=== PATIENT | male | born 1965 | race Caucasian/White ===

== ENCOUNTER 2016-11-20 11:12 | Emergency (ER) | payer BC, OTHER ==
[2016-11-20 11:18] VITALS: BP 128/75; PULSE 80; TEMP 97.9; BMI 31.1
[2016-11-20] MEDS ORDERED: DIPHTH,PERTUSS(ACELL),TET VAC 0.5 ML VIAL IM ONE (13:04)
--- NOTE | 2016-11-20 13:09 | PDOC ---
History of Present Illness - General Chief Complaint: Laceration Stated Complaint: HEAD LAC Time Seen by Provider: 11/20/16 13:03 History Source: Patient Exam Limitations: No Limitations - History of Present Illness Initial Comments: 11/20/16 13:04 51 yo healthy man presents to ED after he cut his head on some metal in his truck. No PMH, No PSH, No MEDS, No ALLERGIES, No associated symptoms, needs tetanus, refuses to allow me to repair the wound. Insists on Plastics Repair. Plastic Coverage Today is Dr. ROSA MATA MD. She can come here after her office closes at 5PM. She will be coming from [address] [place] [address]. She will be happy to see him now in her office. Patient given these two options and elects to go to her office now for the repair. Past History - Past Medical History Allergies/Adverse Reactions: Allergies Allergy/AdvReac Type Severity Reaction Status Date / Time No Known Allergies Allergy Verified 11/20/16 11:12 Home Medications: Ambulatory Orders NK [No Known Home Medication] 11/20/16 Thyroid Disease: No Other medical history: DENIES - Immunization History Immunization Up to Date: Yes - Psycho/Social/Smoking Cessation Hx Anxiety: No Suicidal Ideation: No Smoking Status: No Smoking History: Never smoked Have you smoked in the past 12 months: No Number of Cigarettes Smoked Daily: 0 Cigars Per Day: 0 Hx Alcohol Use: No Drug/Substance Use Hx: No Substance Use Type: None Hx Substance Use Treatment: No Review of Systems - Review of Systems Constitutional: No: Symptoms Reported HEENTM: No: Symptoms Reported Respiratory: No: Symptoms reported Cardiac (ROS): No: Symptoms Reported ABD/GI: No: Symptoms Reported : No: Symptoms Reported Musculoskeletal: No: Symptoms Reported Integumentary: No: Symptoms Reported Neurological: No: Symptoms reported Psychiatric: No: Anxiety, Depression Endocrine: No: Symptoms Reported Hematologic/Lymphatic: No: Symptoms Reported All Other Systems: Reviewed and Negative *Physical Exam - Vital Signs Last Vital Signs Temp Pulse Resp BP Pulse Ox 97.9 F 80 18 128/75 99 11/20/16 11:12 11/20/16 11:12 11/20/16 11:12 11/20/16 11:12 11/20/16 11:12 - Physical Exam Comments: 11/20/16 13:10 4.5 cm lac to right side of forehead minimal bleeding no FB. HEENT exam otherwise atraumatic Neck supple and non tender Chest CTA Heart No Murmur *DC/Admit/Observation/Transfer Diagnosis at time of Disposition: Laceration of forehead without complication Qualifiers: Encounter type: initial encounter Qualified Code(s): S01.81XA - Laceration without foreign body of other part of head, initial encounter - Discharge Dispostion Condition at time of disposition: Unchanged/Unknown Admit: No - Patient Instructions Additional Instructions: Mr Santizo- Go Directly to the plastic surgeon's office which is near [facility]. Her office is at: DR ROSA MATA [address] [facility] Office Number in case you get lost is [phone] Gabino- Dr. Bran Contreras
== END 2016-11-20 13:23 | disposition home or self-care (01) ==
LOC: FER 11:12
PROC: 3E0234Z Introduction of Serum, Toxoid and Vaccine into Muscle, Percutaneous Approach (ICD-10-PCS; principal; 2016-11-20)
DX: S01.81XA Laceration without foreign body of other part of head, initial encounter (principal); W22.8XXA Striking against or struck by other objects, initial encounter; Y93.9 Activity, unspecified; Y92.89 Other specified places as the place of occurrence of the external cause
CPT/HCPCS: 99282-25

== ENCOUNTER 2016-11-20 14:15 | Emergency (ER) | payer OTHER, BC ==
[2016-11-20] MEDS ORDERED: LIDO 2%/EPI 1:200000 PRESRVFRE (20 ML SDVIAL) ONE (14:46)
[2016-11-20 15:10] VITALS: BP 126/78; PULSE 79; TEMP 98.3; BMI 30.4
--- NOTE | 2016-11-20 15:11 | PDOC ---
History of Present Illness - General Chief Complaint: Laceration Stated Complaint: forehead/ head lac Past History - Past Medical History Allergies/Adverse Reactions: Allergies Allergy/AdvReac Type Severity Reaction Status Date / Time No Known Allergies Allergy Verified 11/20/16 11:12 Home Medications: Ambulatory Orders NK [No Known Home Medication] 11/20/16 Thyroid Disease: No - Immunization History Immunization Up to Date: Yes - Psycho/Social/Smoking Cessation Hx Anxiety: No Suicidal Ideation: No Smoking Status: No Smoking History: Never smoked Have you smoked in the past 12 months: No Number of Cigarettes Smoked Daily: 0 Cigars Per Day: 0 Hx Alcohol Use: No Drug/Substance Use Hx: No Substance Use Type: None Hx Substance Use Treatment: No *DC/Admit/Observation/Transfer Diagnosis at time of Disposition: Laceration of forehead without complication Qualifiers: Encounter type: initial encounter Qualified Code(s): S01.81XA - Laceration without foreign body of other part of head, initial encounter - Discharge Dispostion Disposition: HOME Condition at time of disposition: Improved - Referrals Referrals: Corona Mejía MD [Staff Physician] - - Patient Instructions Printed Discharge Instructions: DI for Laceration Repair Additional Instructions: Follow Dr. Mejía's Instructions
--- NOTE | 2016-11-24 14:33 | OP ---
DATE OF OPERATION: 11/20/2016 PROCEDURE PERFORMED: A 3-cm forehead laceration complex washout and repair with a separate complex scalp laceration washout and repair measuring 2.5 cm. ATTENDING PHYSICIAN: Corona Ayala MD REFERRING PHYSICIAN: MD Darvin HISTORY: This is a 51-year-old male who suffered a laceration in each of the frontal scalp and the forehead involving skin, frontalis, galea and muscle. He was brought to [facility] for treatment. PAST MEDICAL HISTORY: Noncontributory. PAST SURGICAL HISTORY: Noncontributory. REVIEW OF SYSTEMS: Negative for any bleeding, coagulopathy, recent fevers or infections, change in mental status, chest pain, or shortness of breath. PHYSICAL EXAMINATION: Head and Neck: Atraumatic except for the above described laceration. Pupils are equal, round and reactive to light. Extraocular muscles are intact. Neck: Supple, nontender. Heart: Regular rate and rhythm. Lungs: Clear to auscultation. The patient is counseled on risks, benefits and alteratives to washout and repair of laceration. He understood and agreed to proceed. PROCEDURE IN DETAIL: The wound was prepped and draped in standard sterile fashion. Margins were injected with a total of 5 mL of 2% lidocaine with 1:100,000 epinephrine. The wound was copiously irrigated with normal saline. The frontalis muscles were approximated with 5-0 Vicryl suture. The galea was approximated with 5-0 Vicryl. The skin was then carefully debrided and prepared on the skin with a running 5-0 Prolene suture. The scalp was then repaired with a series of interrupted skin nataly. The wound is dressed with bacitracin. Written instructions were given. The patient is to follow up with Dr. Ayala in 6 days. CORONA AYALA M.D. [id number]
== END 2016-11-20 15:15 | disposition home or self-care (01) ==
LOC: FER 14:15
PROC: 0HQ1XZZ Repair Face Skin, External Approach (ICD-10-PCS; principal; 2016-11-20)
DX: S01.81XA Laceration without foreign body of other part of head, initial encounter (principal); W22.8XXA Striking against or struck by other objects, initial encounter; Y93.9 Activity, unspecified; Y92.9 Unspecified place or not applicable
CPT/HCPCS: 99282-25

== ENCOUNTER 2017-06-25 12:58 | Inpatient (IN) | payer BC, OTHER ==
[2017-06-25] MEDS ORDERED: SODIUM CHLORIDE 1,000 ML IV STA (13:26)
--- NOTE | 2017-06-25 13:38 | PDOC ---
Attending Attestation - Resident Resident Name: Tova Eisenberg - ED Attending Attestation I have performed the following: I have examined & evaluated the patient, The case was reviewed & discussed with the resident, I agree w/resident's findings & plan, Exceptions are as noted - HPI HPI: 06/25/17 13:27 52y M hx of DM, presents with AMS. Per family and coworkers, the patient was confused today at work,his coworker brought him home and at home they called EMS. PEr the family the patient was unable to answer any questions, was confused in the parking lot in that he couldnt find his car. ON arrival the patient was agitated, was noted to be tachy t o120s, extremities were cold, but his core temp was warm - his rectal was 102. history from the patient is limited due to his mental status. per family the pt had a hsistory of etoh and drug abuse but no longer. on exam the pt is agitated, on arrival he was tearful but it stopped after a few minutes. 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 and no exposure to pesticides or organophosphates no one else sick at work will ck labs, tox screen, cva, ua, will get fluids pt extremely agiated and trying to get up and requred sedation with ativan 1mg 06/25/17 15:39 labs reviewed mild leukoctypsis essentially nondiagnostic will bring to CT when available awaiting ABG results if workup negative, consider LP as pt is fever/AMS --> ?meningitis/encephalitis 06/25/17 15:58 06/25/17 16:59 ct head eng for acute pathology 06/25/17 18:34 unable to obtain CSF, LP x 2 - pt agitated, moving making it dangerous, even with sedation will treat with abx with CTX, Vancomycin, Acyclovir for meningitis will order MRI for possible CVA will admit for further managment will discuss with Dr. Cooley 06/25/17 19:47 pt with some abd tenderness on repeat exam - will obtain CT abd with IV contrast pt admitted to hospitalist service for further management will consult neurology CRITICAL CARE DOCUMENTATION: I spent ~105 minutes of Critical Care time, excluding separately billable procedures, involving high complexity decision making to assess, manipulate and support vital system function(s) to treat single or multiple vital organ system failure and/or to prevent further life threatening deterioration of the patient' s condition. Heart Score/ECG Review - ECG Impressions Comment:: 06/25/17 19:53 EKG: NSR Rate of 94 normal axis normal intervals no ST changes suggestive of acute ischemia
[2017-06-25] MEDS ORDERED: ACETAMINOPHEN INJECTION 100 ML IVPB ONE ×2 (13:45→19:35)
[2017-06-25] MEDS ORDERED: ACETAMINOPHEN 1000 MG/100 ML VIAL (NON FORMULARY) IVPB ONE ×2 (14:01→20:14)
[2017-06-25 14:17] LABS: URINE APPEARANCE CLEAR; URINE BILIRUBIN NEGATIVE (NEGATIVE); URINE BLOOD 1+ (NEGATIVE); URINE COLOR YELLOW; URINE GLUCOSE (UA) NEGATIVE (NEGATIVE); URINE KETONE NEGATIVE (NEGATIVE); URINE LEUK ESTERASE NEGATIVE (NEGATIVE); URINE NITRITE NEGATIVE (NEGATIVE); URINE PROTEIN NEGATIVE (NEGATIVE); URINE UROBILINOGEN NEGATIVE mg/dL (0.2-1.0)
[2017-06-25 14:21] LABS: URINE MUCUS RARE
[2017-06-25 14:30] LABS: INR 1.01 (0.82-1.09); PROTHROMBIN TIME (PATIENT) 11.4 SEC (9.98-11.88)
[2017-06-25 14:33] LABS: ACTIVATED PTT 23.4 SECONDS (26.9-34.4)
[2017-06-25 14:43] LABS: ACETAMINOPHEN < 10 ug/ml (10.0-30.0); COCAINE, UR NEGATIVE ng/ml (CUTOFF=300); METHADONE, UR NEGATIVE ng/ml (CUTOFF=300); OPIATES, URI NEGATIVE ng/ml (CUTOFF=300); PHENCYCLIDINE,URINE NEGATIVE ng/ml (CUTOFF=25); SALICYLATE < 4.0 mg/dl (0.0-30.0); URINE AMPHETAMINES NEGATIVE ng/ml (CUTOFF=500); URINE BARBITURATES NEGATIVE ng/ml (CUTOFF=200); URINE BENZODIAZEPINES NEGATIVE ng/ml (CUTOFF=200)
[2017-06-25 14:45] LABS: ALBUMIN 4.7 g/dl (3.4-5.0); ANION GAP 11 (8-16); BLOOD UREA NITROGEN 13 mg/dL (7-18); CALCIUM 10.1 mg/dL (8.5-10.1); CHLORIDE 99 mmol/L (98-107); CO2 25 mmol/L (21-32); CREATININE 0.9 mg/dL (0.7-1.3); GLUCOSE,RANDOM 120 mg/dL (74-106); POTASSIUM 4.4 mmol/L (3.5-5.1); SGOT/AST 13 U/L (15-37); SGPT/ALT 34 U/L (12-78); SODIUM 135 mmol/L (136-145)
[2017-06-25 14:55] LABS: ALK PHOS 114 U/L (45-117); BILIRUBIN,TOTAL 1.6 mg/dL (0.2-1.0); TOT PROT 8.8 g/dl (6.4-8.2)
[2017-06-25 15:21] LABS: BASO % 1.1 % (0-2.0); EOS % 1.2 % (0-4.5); HEMATOCRIT 46.3 % (35.4-49); HEMOGLOBIN 15.8 GM/dL (11.7-16.9); LYMPH % 25.2 % (8-40); MCH 28.2 pg (25.7-33.7); MCHC 34.2 g/dl (32.0-35.9); MEAN CELL VOLUME 82.4 fl (80-96); MEAN PLT VOLUME 8.3 fl (7.5-11.1); MONO % 7.5 % (3.8-10.2); PLATELET COUNT 185 K/MM3 (134-434); RBC 5.61 M/mm3 (4.00-5.60); WHITE BLOOD COUNT 11.4 K/mm3 (4.0-10.0)
[2017-06-25 15:34] LABS: ALCOHOL < 5.0 mg/dl (0-5)
[2017-06-25 15:44] LABS: ARTERIAL BLD GAS O2 SATURATION 94.2 % (90-98.9); ARTERIAL BLOOD GAS PCO2 31.7 mmHg (35-45); ARTERIAL BLOOD GAS PO2 69.2 mmHg (80-100); ARTERIAL BLOOD GAS pH 7.44 (7.35-7.45)
--- NOTE | 2017-06-25 15:45 | PDOC ---
History of Present Illness <Kvng Swan - Last Filed: 06/25/17 18:32> - General History Source: Patient, Family - History of Present Illness Initial Comments: This is a 52 YOM with h/o DM and distant EtOH/drug abuse, who presents with family BIBA c/o agitation, confusion, sweats, tearing eyes, runny nose, inability to get comfortable, and anxiety since this morning. The family notes that the patient was at work when he first became confused and this worsened throughout the day per coworkers. He was unable to find his car in the parking lot and a coworker brought him home. Shortly after arrival home, 911 was called to bring him to the ED. Here in the ED, the patient himself is unable to provide any relevant medical history 2/2 agitation. <Tova Eisenberg - Last Filed: 06/25/17 19:12> - General Chief Complaint: Altered Mental Status Stated Complaint: SENT BY PCP Time Seen by Provider: 06/25/17 13:24 Past History <Kvng Swan - Last Filed: 06/25/17 18:32> - Past Medical History COPD: No Diabetes: Yes (type II) Thyroid Disease: No - Immunization History Immunization Up to Date: Yes - Suicide/Smoking/Psychosocial Hx Smoking Status: No Smoking History: Never smoked Have you smoked in the past 12 months: No Number of Cigarettes Smoked Daily: 0 Cigars Per Day: 0 Information on smoking cessation initiated: No Hx Alcohol Use: No Drug/Substance Use Hx: No Substance Use Type: None Hx Substance Use Treatment: No <Tova Eisenberg - Last Filed: 06/25/17 19:12> - Past Medical History Allergies/Adverse Reactions: Allergies Allergy/AdvReac Type Severity Reaction Status Date / Time No Known Allergies Allergy Verified 06/25/17 13:25 Home Medications: Ambulatory Orders NK [No Known Home Medication] 06/25/17 *Physical Exam - Vital Signs Last Vital Signs Temp Pulse Resp BP Pulse Ox 100.5 F H 96 H 20 141/98 98 06/25/17 18:00 06/25/17 18:00 06/25/17 18:00 06/25/17 18:00 06/25/17 18:00 <Kvng Swan - Last Filed: 06/25/17 18:32> - Vital Signs Last Vital Signs Temp Pulse Resp BP Pulse Ox 101.7 F H 94 H 20 123/86 96 06/25/17 13:21 06/25/17 14:45 06/25/17 14:45 06/25/17 14:45 06/25/17 14:45 <Tova Eisenberg - Last Filed: 06/25/17 19:12> Procedures - Lumbar Puncture Indication: Meningitis CT Scan: Yes Betadine Prep: Yes Position: Left lateral decubitus Site: L3-L4 Local Anesthesia: 1% Lidocaine with epi Volume(ml): 5 Lumbar Puncture Kit: Adult Complications: Dry Tap <Kvng Swan - Last Filed: 06/25/17 18:32> - Lumbar Puncture Indication: AMS, Fever CT Scan: Yes Betadine Prep: Yes Position: Right lateral decubitus Site: L3-L4 Local Anesthesia: 1% Lidocaine with epi Lumbar Puncture Kit: Adult Complications: No Progress: Unable to get CSF return <Tova Eisenberg - Last Filed: 06/25/17 19:12> ED Treatment Course - LABORATORY CBC & Chemistry Diagram: 06/25/17 14:55 06/25/17 14:02 - ADDITIONAL ORDERS Additional order review: Laboratory Results 06/25/17 06/25/17 06/25/17 15:30 14:55 14:10 PT with INR INR PTT (Actin FS) Anticoagulation Therapy No Result Required. ABG pH 7.44 ABG pCO2 at Pt Temp 31.7 L ABG pO2 at Pt Temp 69.2 L ABG HCO3 21.3 L ABG O2 Sat (Measured) 94.2 ABG O2 Content 26.0 H ABG Base Excess -1.0 Navid Test Positive O2 Delivery Device No Result Required. Oxygen Flow Rate Yes Vent Mode No Result Required. Vent Rate No Result Required. Mechanical Rate No Result Required. Pressure Support Vent No Result Required. Sodium Potassium Chloride Carbon Dioxide Anion Gap BUN Creatinine Creat Clearance w eGFR Random Glucose Lactic Acid Calcium Total Bilirubin AST ALT Alkaline Phosphatase Ammonia < 10 L Creatine Kinase Troponin I Total Protein Albumin Urine Color Urine Appearance Urine pH Ur Specific Alvord Urine Protein Urine Glucose (UA) Urine Ketones Urine Blood Urine Nitrite Urine Bilirubin Urine Urobilinogen Urine WBC (Auto) Urine RBC (Auto) Urine Mucus Salicylates Opiates Screen Methadone Screen Acetaminophen Barbiturate Screen Phencyclidine Screen Ur Amphetamines Screen MDMA (Ecstasy) Screen Benzodiazepines Screen Cocaine Screen U Marijuana (THC) Screen Alcohol, Quantitative Blood Type O POSITIVE Antibody Screen Negative 06/25/17 06/25/17 06/25/17 14:02 14:02 14:02 PT with INR 11.40 INR 1.01 PTT (Actin FS) 23.4 L D Anticoagulation Therapy ABG pH ABG pCO2 at Pt Temp ABG pO2 at Pt Temp ABG HCO3 ABG O2 Sat (Measured) ABG O2 Content ABG Base Excess Navid Test O2 Delivery Device Oxygen Flow Rate Vent Mode Vent Rate Mechanical Rate Pressure Support Vent Sodium Potassium Chloride Carbon Dioxide Anion Gap BUN Creatinine Creat Clearance w eGFR Random Glucose Lactic Acid 1.8 Calcium Total Bilirubin AST ALT Alkaline Phosphatase Ammonia Creatine Kinase Troponin I Total Protein Albumin Urine Color Urine Appearance Urine pH Ur Specific Alvord Urine Protein Urine Glucose (UA) Urine Ketones Urine Blood Urine Nitrite Urine Bilirubin Urine Urobilinogen Urine WBC (Auto) Urine RBC (Auto) Urine Mucus Salicylates Opiates Screen Negative Methadone Screen Negative Acetaminophen Barbiturate Screen Negative Phencyclidine Screen Negative Ur Amphetamines Screen Negative MDMA (Ecstasy) Screen Negative Benzodiazepines Screen Negative Cocaine Screen Negative U Marijuana (THC) Screen Negative Alcohol, Quantitative Blood Type Antibody Screen 06/25/17 06/25/17 06/25/17 14:02 14:02 14:02 PT with INR INR PTT (Actin FS) Anticoagulation Therapy ABG pH ABG pCO2 at Pt Temp ABG pO2 at Pt Temp ABG HCO3 ABG O2 Sat (Measured) ABG O2 Content ABG Base Excess Navid Test O2 Delivery Device Oxygen Flow Rate Vent Mode Vent Rate Mechanical Rate Pressure Support Vent Sodium 135 L Potassium 4.4 Chloride 99 Carbon Dioxide 25 Anion Gap 11 BUN 13 Creatinine 0.9 Creat Clearance w eGFR > 60 Random Glucose 120 H D Lactic Acid Calcium 10.1 Total Bilirubin 1.6 H D AST 13 L ALT 34 D Alkaline Phosphatase 114 Ammonia Creatine Kinase 74 Troponin I < 0.02 Total Protein 8.8 H D Albumin 4.7 D Urine Color Yellow Urine Appearance Clear Urine pH 5.0 Ur Specific Alvord 1.023 Urine Protein Negative Urine Glucose (UA) Negative Urine Ketones Negative Urine Blood 1+ H Urine Nitrite Negative Urine Bilirubin Negative Urine Urobilinogen Negative Urine WBC (Auto) <1 Urine RBC (Auto) 1 Urine Mucus Rare Salicylates < 4.0 Opiates Screen Methadone Screen Acetaminophen < 10 L Barbiturate Screen Phencyclidine Screen Ur Amphetamines Screen MDMA (Ecstasy) Screen Benzodiazepines Screen Cocaine Screen U Marijuana (THC) Screen Alcohol, Quantitative < 5.0 Blood Type Antibody Screen 06/25/17 06/25/17 14:55 14:02 RBC 5.61 H MCV 82.4 MCHC 34.2 RDW 13.0 MPV 8.3 Neutrophils % 65.0 D Lymphocytes % 25.2 D Monocytes % 7.5 Eosinophils % 1.2 Basophils % 1.1 - RADIOLOGY Radiology Studies Ordered: Category Date Time Status HEAD CT WITHOUT CONTRAST [CT] Stat CT Scan 06/25/17 16:10 Completed BRAIN MRI W/O CONTRAST [MRI] Stat MRI 06/25/17 18:31 Ordered CHEST X-RAY PORTABLE* [RAD] Stat Radiology 06/25/17 13:26 Completed - Medications Given in the ED: ED Medications Discontinued Medications Generic Name Dose Route Start Last Admin Trade Name Freq PRN Reason Stop Dose Admin Acetaminophen 1,000 mg 06/25/17 14:01 06/25/17 14:03 Ofirmev Injection - IVPB 06/25/17 14:02 1,000 mg ONCE ONE Administration Sodium Chloride 1,000 mls @ 1,000 mls/hr 06/25/17 13:26 06/25/17 13:50 Normal Saline - IV 06/25/17 14:25 1,000 mls/hr ASDIR STA Administration Lorazepam 1 mg 06/25/17 13:56 06/25/17 14:00 Ativan Injection - IVPUSH 06/25/17 13:57 1 mg ONCE ONE Administration Lorazepam 0.5 mg 06/25/17 17:00 06/25/17 17:32 Ativan Injection - IVPUSH 06/25/17 17:01 0.5 mg ONCE ONE Administration <Sosa,Kvng - Last Filed: 06/25/17 18:32> - LABORATORY CBC & Chemistry Diagram: 06/25/17 14:55 06/25/17 14:02 - ADDITIONAL ORDERS Additional order review: Laboratory Results 06/25/17 06/25/17 06/25/17 15:30 14:02 14:02 PT with INR INR PTT (Actin FS) Anticoagulation Therapy No Result Required. O2 Delivery Device No Result Required. Oxygen Flow Rate No Result Required. Vent Mode No Result Required. Vent Rate No Result Required. Mechanical Rate No Result Required. Pressure Support Vent No Result Required. Sodium Potassium Chloride Carbon Dioxide Anion Gap BUN Creatinine Creat Clearance w eGFR Random Glucose Lactic Acid 1.8 Calcium Total Bilirubin AST ALT Alkaline Phosphatase Creatine Kinase Troponin I Total Protein Albumin Urine Color Urine Appearance Urine pH Ur Specific Alvord Urine Protein Urine Glucose (UA) Urine Ketones Urine Blood Urine Nitrite Urine Bilirubin Urine Urobilinogen Urine WBC (Auto) Urine RBC (Auto) Urine Mucus Salicylates Opiates Screen Negative Methadone Screen Negative Acetaminophen Barbiturate Screen Negative Phencyclidine Screen Negative Ur Amphetamines Screen Negative MDMA (Ecstasy) Screen Negative Benzodiazepines Screen Negative Cocaine Screen Negative U Marijuana (THC) Screen Negative Alcohol, Quantitative 06/25/17 06/25/17 06/25/17 14:02 14:02 14:02 PT with INR 11.40 INR 1.01 PTT (Actin FS) 23.4 L D Anticoagulation Therapy O2 Delivery Device Oxygen Flow Rate Vent Mode Vent Rate Mechanical Rate Pressure Support Vent Sodium 135 L Potassium 4.4 Chloride 99 Carbon Dioxide 25 Anion Gap 11 BUN 13 Creatinine 0.9 Creat Clearance w eGFR > 60 Random Glucose 120 H D Lactic Acid Calcium 10.1 Total Bilirubin 1.6 H D AST 13 L ALT 34 D Alkaline Phosphatase 114 Creatine Kinase 74 Troponin I < 0.02 Total Protein 8.8 H D Albumin 4.7 D Urine Color Urine Appearance Urine pH Ur Specific Alvord Urine Protein Urine Glucose (UA) Urine Ketones Urine Blood Urine Nitrite Urine Bilirubin Urine Urobilinogen Urine WBC (Auto) Urine RBC (Auto) Urine Mucus Salicylates < 4.0 Opiates Screen Methadone Screen Acetaminophen < 10 L Barbiturate Screen Phencyclidine Screen Ur Amphetamines Screen MDMA (Ecstasy) Screen Benzodiazepines Screen Cocaine Screen U Marijuana (THC) Screen Alcohol, Quantitative < 5.0 06/25/17 14:02 PT with INR INR PTT (Actin FS) Anticoagulation Therapy O2 Delivery Device Oxygen Flow Rate Vent Mode Vent Rate Mechanical Rate Pressure Support Vent Sodium Potassium Chloride Carbon Dioxide Anion Gap BUN Creatinine Creat Clearance w eGFR Random Glucose Lactic Acid Calcium Total Bilirubin AST ALT Alkaline Phosphatase Creatine Kinase Troponin I Total Protein Albumin Urine Color Yellow Urine Appearance Clear Urine pH 5.0 Ur Specific Alvord 1.023 Urine Protein Negative Urine Glucose (UA) Negative Urine Ketones Negative Urine Blood 1+ H Urine Nitrite Negative Urine Bilirubin Negative Urine Urobilinogen Negative Urine WBC (Auto) <1 Urine RBC (Auto) 1 Urine Mucus Rare Salicylates Opiates Screen Methadone Screen Acetaminophen Barbiturate Screen Phencyclidine Screen Ur Amphetamines Screen MDMA (Ecstasy) Screen Benzodiazepines Screen Cocaine Screen U Marijuana (THC) Screen Alcohol, Quantitative 06/25/17 06/25/17 14:55 14:02 RBC 5.61 H MCV 82.4 MCHC 34.2 RDW 13.0 MPV 8.3 Neutrophils % 65.0 D Lymphocytes % 25.2 D Monocytes % 7.5 Eosinophils % 1.2 Basophils % 1.1 - Medications Given in the ED: ED Medications Discontinued Medications Generic Name Dose Route Start Last Admin Trade Name Ezra PRN Reason Stop Dose Admin Acetaminophen 1,000 mg 06/25/17 14:01 06/25/17 14:03 Ofirmev Injection - IVPB 06/25/17 14:02 1,000 mg ONCE ONE Administration Sodium Chloride 1,000 mls @ 1,000 mls/hr 06/25/17 13:26 06/25/17 13:50 Normal Saline - IV 06/25/17 14:25 1,000 mls/hr ASDIR STA Administration Lorazepam 1 mg 06/25/17 13:56 06/25/17 14:00 Ativan Injection - IVPUSH 06/25/17 13:57 1 mg ONCE ONE Administration <Tova Eisenberg - Last Filed: 06/25/17 19:12> Medical Decision Making - Medical Decision Making 52 YOM with h/o DM and distant EtOH/drug abuse, BIBA w/ acute agitation, confusion, sweats, tearing eyes, runny nose, fever. On exam he is tachycardic, tachypneic, DDX IBNLT toxic ingestion/exposure, ICH or other intracranial pathology, infection i.e. meningitis or encephalitis, encephalopathy, metabolic, etc. Ordered is CBCD, CMP, Mg, Phos, ammonia, cardiac panel, lactate, BCx, UA cx tox , APAP level, Tylenol level, CXR, EKG, ABG, HCT. Patient given 2 L IVF as well as Ofirmev and 1 mg Ativan. 06/25/17 18:46 Patient remained confused, agitated, febrile. CBCD results with mild elevation in WBC. Tox negative, UA negative, remaining labs unremarkable. Head CT without obvious ICH or other intracranial processes. Attempted to to LP after patient is re-dosed with Ativan but the patient is too agitated, moving frequently. Empiric vancomycin, ceftriaxone, acyclovir ordered. MRI brain wo contrast also ordered. Plan is for admission to inpatient telemetry. <Tova Eisenberg - Last Filed: 06/25/17 19:12> *DC/Admit/Observation/Transfer <Kvng Swan - Last Filed: 06/25/17 18:32> - Discharge Dispostion Admit: Yes <Tova Eisenberg - Last Filed: 06/25/17 19:12> Diagnosis at time of Disposition: Altered mental state Qualifiers: Altered mental status type: unspecified Qualified Code(s): R41.82 - Altered mental status, unspecified Sepsis Qualifiers: Sepsis type: sepsis due to unspecified organism Qualified Code(s): A41.9 - Sepsis, unspecified organism - Discharge Dispostion Condition at time of disposition: Guarded - Referrals Referrals: Jaspreet Cooley MD [Primary Care Provider] - - Patient Instructions - Post Discharge Activity
[2017-06-25 16:12] LABS: ALLENS TEST POSITIVE
[2017-06-25] MEDS ORDERED: LORazepam 2 MG/ML SDV VIAL ONE ×2 (17:04→21:23)
[2017-06-25] MEDS ORDERED: CEFTRIAXONE 2 GM in DEXTROSE 5%-WATER - 50 ML IVPB ONE (18:28)
[2017-06-25] MEDS ORDERED: WATER IVPB ONE (18:29)
[2017-06-25] MEDS ORDERED: ACYCLOVIR IVPB ONE (18:29)
[2017-06-25] MEDS ORDERED: DEXTROSE 5% IVPB ONE (18:29)
[2017-06-25] MEDS ORDERED: VANCOMYCIN 1,500 MG in DEXTROSE 5%-WATER - 250 ML IVPB ONE (18:31)
[2017-06-25] MEDS ORDERED: CEFTRIAXONE 2 GM/100 ML BAG IVPB ONE (18:47)
[2017-06-25] MEDS ORDERED: HALOPERIDOL LACTATE 5 MG/ML IM ONE (19:01)
[2017-06-25] MEDS ORDERED: HALOPERIDOL LACTATE 5 MG/ML ONE (19:02)
--- NOTE | 2017-06-25 20:07 | HP ---
PCP: Jaspreet Cooley CHIEF COMPLAINT: Confusion HISTORY OF PRESENT ILLNESS: This is a 52 year old man who was brought in to the ED because of agitation and confusion. Family notes that he was ok last night. He went to work this morning and while there became confused. According to his coworkers, he worsened throughout the day and he had to be driven home. Once home, family called EMS. They noted that he has been tremulous and sweaty. He is currently awake, moving around on the stretcher, and moaning. He is unable to provide any history. LP was attempted twice in ED without CSF being obtained both times. PAST MEDICAL HISTORY: Type 2 diabetes mellitus PAST SURGICAL HISTORY: Arm surgery for fracture Social History: Smoking: Never smoked Alcohol: Former Drugs: Former marijuana user Recent Travel: No Family History: Non-contributory Allergies No Known Allergies Allergy (Verified 06/25/17 13:25) Home Medications Medication Instructions Recorded NK [No Known Home Medication] 06/25/17 REVIEW OF SYSTEMS Unable to obtain PHYSICAL EXAMINATION Vital Signs - 24 hr 06/25/17 06/25/17 06/25/17 13:21 14:00 14:30 Temperature 101.7 F H Pulse Rate 122 H 94 H Pulse Rate [ 102 H 96 H Apical] Respiratory 23 24 20 Rate Blood Pressure 130/95 Blood Pressure 115/80 133/98 [Left Arm] O2 Sat by Pulse 100 96 95 Oximetry (%) 06/25/17 06/25/17 06/25/17 14:45 15:47 16:00 Temperature 98.8 F Pulse Rate Pulse Rate [ 94 H 94 H Apical] Respiratory 20 20 Rate Blood Pressure Blood Pressure 123/86 124/83 [Left Arm] O2 Sat by Pulse 96 97 Oximetry (%) 06/25/17 06/25/17 06/25/17 16:30 17:00 17:30 Temperature Pulse Rate Pulse Rate [ 91 H 90 98 H Apical] Respiratory 18 18 18 Rate Blood Pressure Blood Pressure 141/89 136/99 150/94 [Left Arm] O2 Sat by Pulse 98 98 98 Oximetry (%) 06/25/17 06/25/17 06/25/17 18:00 19:25 19:50 Temperature 100.5 F H 103 F H 102.7 F H Pulse Rate Pulse Rate [ 96 H 101 H 102 H Apical] Respiratory 20 22 20 Rate Blood Pressure Blood Pressure 141/98 158/88 163/91 [Left Arm] O2 Sat by Pulse 98 97 98 Oximetry (%) GENERAL: Awake, confused. HEAD: Normal with no signs of trauma. EYES: Unable to examine eyes as patient is keeping lids closed tight. EARS, NOSE, THROAT: Ears normal, nares patent, oropharynx unable to be visualized. NECK: Supple, decreased ROM, without lymphadenopathy, JVD, or masses. LUNGS: Breath sounds equal, clear to auscultation bilaterally. No wheezes, and no crackles. No accessory muscle use. HEART: Regular rate and rhythm, normal S1 and S2 without murmur, rub or gallop. ABDOMEN: Soft, not distended, normoactive bowel sounds, no masses, no apparent tenderness. No hepatomegaly or splenomegaly. MUSCULOSKELETAL: Normal passive range of motion at all joints. No bony deformities. UPPER EXTREMITIES: 2+ pulses, warm, well-perfused. No cyanosis. No clubbing. No peripheral edema. LOWER EXTREMITIES: 2+ pulses, warm, well-perfused. No calf tenderness. No peripheral edema. NEUROLOGICAL: Unable to cooperate with examination. Moaning and moving all extremities. PSYCHIATRIC: Unable to assess. SKIN: Warm, dry, normal turgor, no rashes or lesions noted, normal capillary refill. Laboratory Results - last 24 hr 06/25/17 06/25/17 06/25/17 14:02 14:02 14:02 WBC RBC Hgb Hct MCV MCH MCHC RDW Plt Count No Result Required. MPV Neutrophils % Lymphocytes % Monocytes % Eosinophils % Basophils % PT with INR INR PTT (Actin FS) Anticoagulation Therapy ABG pH ABG pCO2 at Pt Temp ABG pO2 at Pt Temp ABG HCO3 ABG O2 Sat (Measured) ABG O2 Content ABG Base Excess Navid Test O2 Delivery Device Oxygen Flow Rate Vent Mode Vent Rate Mechanical Rate Pressure Support Vent Sodium 135 L Potassium 4.4 Chloride 99 Carbon Dioxide 25 Anion Gap 11 BUN 13 Creatinine 0.9 Creat Clearance w eGFR > 60 Random Glucose 120 H D Lactic Acid Calcium 10.1 Total Bilirubin 1.6 H D AST 13 L ALT 34 D Alkaline Phosphatase 114 Ammonia Creatine Kinase 74 Troponin I < 0.02 Total Protein 8.8 H D Albumin 4.7 D Urine Color Yellow Urine Appearance Clear Urine pH 5.0 Ur Specific [place] 1.023 Urine Protein Negative Urine Glucose (UA) Negative Urine Ketones Negative Urine Blood 1+ H Urine Nitrite Negative Urine Bilirubin Negative Urine Urobilinogen Negative Ur Leukocyte Esterase Negative Urine WBC (Auto) <1 Urine RBC (Auto) 1 Urine Mucus Rare Salicylates Opiates Screen Methadone Screen Acetaminophen Barbiturate Screen Phencyclidine Screen Ur Amphetamines Screen MDMA (Ecstasy) Screen Benzodiazepines Screen Cocaine Screen U Marijuana (THC) Screen Alcohol, Quantitative Acetone, Qual Blood Type Antibody Screen 06/25/17 06/25/17 06/25/17 14:02 14:02 14:02 WBC RBC Hgb Hct MCV MCH MCHC RDW Plt Count MPV Neutrophils % Lymphocytes % Monocytes % Eosinophils % Basophils % PT with INR 11.40 INR 1.01 PTT (Actin FS) 23.4 L D Anticoagulation Therapy ABG pH ABG pCO2 at Pt Temp ABG pO2 at Pt Temp ABG HCO3 ABG O2 Sat (Measured) ABG O2 Content ABG Base Excess Navid Test O2 Delivery Device Oxygen Flow Rate Vent Mode Vent Rate Mechanical Rate Pressure Support Vent Sodium Potassium Chloride Carbon Dioxide Anion Gap BUN Creatinine Creat Clearance w eGFR Random Glucose Lactic Acid 1.8 Calcium Total Bilirubin AST ALT Alkaline Phosphatase Ammonia Creatine Kinase Troponin I Total Protein Albumin Urine Color Urine Appearance Urine pH Ur Specific [place] Urine Protein Urine Glucose (UA) Urine Ketones Urine Blood Urine Nitrite Urine Bilirubin Urine Urobilinogen Ur Leukocyte Esterase Urine WBC (Auto) Urine RBC (Auto) Urine Mucus Salicylates < 4.0 Opiates Screen Methadone Screen Acetaminophen < 10 L Barbiturate Screen Phencyclidine Screen Ur Amphetamines Screen MDMA (Ecstasy) Screen Benzodiazepines Screen Cocaine Screen U Marijuana (THC) Screen Alcohol, Quantitative < 5.0 Acetone, Qual Blood Type Antibody Screen 06/25/17 06/25/17 06/25/17 14:02 14:10 14:55 WBC RBC Hgb Hct MCV MCH MCHC RDW Plt Count MPV Neutrophils % Lymphocytes % Monocytes % Eosinophils % Basophils % PT with INR INR PTT (Actin FS) Anticoagulation Therapy ABG pH ABG pCO2 at Pt Temp ABG pO2 at Pt Temp ABG HCO3 ABG O2 Sat (Measured) ABG O2 Content ABG Base Excess Navid Test O2 Delivery Device Oxygen Flow Rate Vent Mode Vent Rate Mechanical Rate Pressure Support Vent Sodium Potassium Chloride Carbon Dioxide Anion Gap BUN Creatinine Creat Clearance w eGFR Random Glucose Lactic Acid Calcium Total Bilirubin AST ALT Alkaline Phosphatase Ammonia < 10 L Creatine Kinase Troponin I Total Protein Albumin Urine Color Urine Appearance Urine pH Ur Specific Paloma Urine Protein Urine Glucose (UA) Urine Ketones Urine Blood Urine Nitrite Urine Bilirubin Urine Urobilinogen Ur Leukocyte Esterase Urine WBC (Auto) Urine RBC (Auto) Urine Mucus Salicylates Opiates Screen Negative Methadone Screen Negative Acetaminophen Barbiturate Screen Negative Phencyclidine Screen Negative Ur Amphetamines Screen Negative MDMA (Ecstasy) Screen Negative Benzodiazepines Screen Negative Cocaine Screen Negative U Marijuana (THC) Screen Negative Alcohol, Quantitative Acetone, Qual Blood Type O POSITIVE Antibody Screen Negative 06/25/17 06/25/17 06/25/17 14:55 15:30 Unknown WBC 11.4 H RBC 5.61 H Hgb 15.8 Hct 46.3 MCV 82.4 MCH 28.2 MCHC 34.2 RDW 13.0 Plt Count 185 MPV 8.3 Neutrophils % 65.0 D Lymphocytes % 25.2 D Monocytes % 7.5 Eosinophils % 1.2 Basophils % 1.1 PT with INR INR PTT (Actin FS) Anticoagulation Therapy No Result Required. ABG pH 7.44 ABG pCO2 at Pt Temp 31.7 L ABG pO2 at Pt Temp 69.2 L ABG HCO3 21.3 L ABG O2 Sat (Measured) 94.2 ABG O2 Content 26.0 H ABG Base Excess -1.0 Navid Test Positive O2 Delivery Device No Result Required. Oxygen Flow Rate Yes Vent Mode No Result Required. Vent Rate No Result Required. Mechanical Rate No Result Required. Pressure Support Vent No Result Required. Sodium Potassium Chloride Carbon Dioxide Anion Gap BUN Creatinine Creat Clearance w eGFR Random Glucose Lactic Acid Calcium Total Bilirubin AST ALT Alkaline Phosphatase Ammonia Creatine Kinase Troponin I Total Protein Albumin Urine Color Urine Appearance Urine pH Ur Specific [place] Urine Protein Urine Glucose (UA) Urine Ketones Urine Blood Urine Nitrite Urine Bilirubin Urine Urobilinogen Ur Leukocyte Esterase Urine WBC (Auto) Urine RBC (Auto) Urine Mucus Salicylates Opiates Screen Methadone Screen Acetaminophen Barbiturate Screen Phencyclidine Screen Ur Amphetamines Screen MDMA (Ecstasy) Screen Benzodiazepines Screen Cocaine Screen U Marijuana (THC) Screen Alcohol, Quantitative Acetone, Qual Negative Blood Type Antibody Screen ASSESSMENT/PLAN: This is a 52 year old man with a history of type 2 DM and a remote history of marijuana and alcohol use who was brought in to the ED by EMS because of change in mental status with agitation. In the ED, he was found to be febrile, tachycardic and confused with WBC 11.4, sodium 135. 1. Acute metabolic encephalopathy - Etiology not clear - Will treat empirically for sepsis/meningitis - IV antibiotics, IV fluid - Follow up blood and urine cultures - Monitor mental status 2. SIRS, possible sepsis, possible acute meningitis - Head CT shows paranasal sinus and nasal inflammatory disease - MRI of brain ordered - Rocephin, Vancomycin, Acyclovir given in ED - LP unsuccessful in ED - Neurology, ID consults 3. Hyponatremia, mild - IV NS - Monitor electrolytes 4. Type 2 diabetes mellitus - Fingersticks with Novolog sliding scale
[2017-06-25] MEDS ORDERED: ACETAMINOPHEN 325 MG TABLET (FP) PO PRN (20:08)
[2017-06-25] MEDS ORDERED: HALOPERIDOL LACTATE 5 MG/ML IM PRN (20:13)
[2017-06-25] MEDS ORDERED: ACETAMINOPHEN 650 MG SUPP.RECT PR PRN (20:14)
[2017-06-25] MEDS ORDERED: SODIUM CHLORIDE 1,000 ML IV ONE (20:14)
[2017-06-25] MEDS ORDERED: SODIUM CHLORIDE 1,000 ML IV SCH (20:15)
[2017-06-25] MEDS ORDERED: LIDOCAINE HCL 1%, 10 MG/ML (20ML VIAL) ONE (21:20)
--- NOTE | 2017-06-25 21:45 | PROC ---
Lumbar Puncture Risks and Benefits Explained: Yes Consent on Chart: Yes Sterile Technique: Yes Skin prep: Betadine Position: Right lateral decubitus Site: L5-S1 Local Anesthesia: 1% Lidocaine with epi CSF Color, Appearance: Clear Sterile Dressing Applied: Yes (Procedure was done successfully ; no complication afterward.)
--- NOTE | 2017-06-25 21:53 | CON.NEURO ---
Consult Consult Specialty:: neurology Reason for Consultation:: AMS - History of Present Illness Chief Complaint: AMS History of Present Illness: This is a 52 year old man who was brought in to the ED because of agitation and confusion. Family notes that he was ok last night. He went to work this morning and while there became confused. According to his coworkers, he worsened throughout the day and he had to be driven home. Once home, family called EMS. They noted that he has been tremulous and sweaty. Per family member at the bedside, he only has h/o DM , on no medication lately , no h/o psych disorder, no sick contact or recent traveling. Per family , SLE runs in family ; has a cousin who was sick lately w fever but he has no contact with her. - Alcohol/Substance Use Hx Alcohol Use: No - Smoking History Smoking history: Never smoked Have you smoked in the past 12 months: No Aproximately how many cigarettes per day: 0 Home Medications - Allergies Allergies/Adverse Reactions: Allergies Allergy/AdvReac Type Severity Reaction Status Date / Time No Known Allergies Allergy Verified 06/25/17 13:25 - Home Medications Home Medications: Ambulatory Orders NK [No Known Home Medication] 06/25/17 Family Disease History - Family Disease History Family Disease History: Diabetes: Father, Mother, Brother Review of Systems - Review of Systems Constitutional: reports: Fever Neck: reports: Stiffness Physical Exam-Neuro Vital Signs: Vital Signs Temperature 102.7 F H 06/25/17 19:50 Pulse Rate 102 H 06/25/17 19:50 Respiratory Rate 20 06/25/17 19:50 Blood Pressure 163/91 06/25/17 19:50 O2 Sat by Pulse Oximetry (%) 98 06/25/17 19:50 Constitutional: Yes: Moderate Distress, Obese Neck: Yes: Rigid Cardiovascular: Yes: WNL, Regular Rate and Rhythm Respiratory: Yes: WNL, CTA Bilaterally Musculoskeletal: Yes: WNL Labs: CBC, BMP 06/25/17 14:55 06/25/17 14:02 INR, PTT INR 1.01 (0.82-1.09) 06/25/17 14:02 - Neuro Exam Level Of Consciousness: Yes: Stuporous Eyes: Yes: PERRLA Speech: Garbled Cranial Nerves II-XII Intact: Yes Gag: Present DTR's: 2+ Left Bicep, 2+ Right Bicep, 2+ Left Tricep, 2+ Right Tricep, 2+ Left Brachioradialis, 2+ Right Brachioradialis, 2+ Left Achilles, 2+ Right Achilles Babinski: Absent Imaging - Results Cat Scan: Report Reviewed, Image Reviewed (No acute events) Assessment/Plan 52 y/o a PMH of DM , on no mediaction p/w acute onset of AMS , confusion and fever from 11: 30 am today . CTH wo no acute events ; on exam neck rigidity , delirious and agitated, moves all exts; I performed a spinal tap and obtained clear fluid , x4 tube . Hx and exam suggestive of possible meningitis , viral vs bacterial . will check Tube 1: Cell count Tube 2: CSF for Pr, Glu, AFB , VDRL , Gram stain, Bacterial / fungal cx, cryptococcal ag, Tube 3: Future references Tube 4: Cytology Antiviral and anti bacterial empiric antibiotic tx neurocheck q 4 hours MRI/A brain wo Infectious consult Health maintenance per primary team. Thank you. Abdelrahman Darling MD [phone]
[2017-06-25] MEDS: INSULIN SLIDING SCALE (NOVOLOG) 1 VIAL SQ SCH (22:20)
[2017-06-26 00:29] VITALS: BMI 33.6
[2017-06-26 01:00] LABS: GLUCOSE,CSF 73 mg/dL (50-80)
[2017-06-26 02:32] LABS: CSF APPEARANCE CLEAR; CSF COLOR COLORLESS
[2017-06-26 02:33] LABS: CSF WBC 1
[2017-06-26] MEDS: ACYCLOVIR INJECTION 1,000 MG in DEXTROSE 5%-WATER - 250 ML IVPB SCH ×3 (04:06→17:52)
[2017-06-26] MEDS: CEFTRIAXONE IN IS-OSM DEXTROSE 2 GM/50 ML BAG IVPB SCH ×2 (05:32→17:52)
[2017-06-26] MEDS ORDERED: CEFTRIAXONE 2 GM in DEXTROSE 5%-WATER - 100 ML IVPB SCH (06:00)
[2017-06-26] MEDS: INSULIN SLIDING SCALE (NOVOLOG) 1 VIAL SQ SCH ×3 (06:07→17:41)
[2017-06-26 06:33] LABS: BASO % 0.9 % (0-2.0); EOS % 1.6 % (0-4.5); HEMATOCRIT 43.5 % (35.4-49); HEMOGLOBIN 15.1 GM/dL (11.7-16.9); LYMPH % 31.4 % (8-40); MCH 28.4 pg (25.7-33.7); MCHC 34.8 g/dl (32.0-35.9); MEAN CELL VOLUME 81.7 fl (80-96); MEAN PLT VOLUME 8.2 fl (7.5-11.1); MONO % 8.6 % (3.8-10.2); NEUT % 57.5 % (42.8-82.8); PLATELET COUNT 165 K/MM3 (134-434); RBC 5.33 M/mm3 (4.00-5.60); RDW 12.8 % (11.9-15.9); WHITE BLOOD COUNT 8.4 K/mm3 (4.0-10.0)
[2017-06-26 07:08] LABS: ALBUMIN 3.7 g/dl (3.4-5.0); ANION GAP 13 (8-16); BLOOD UREA NITROGEN 10 mg/dL (7-18); CALCIUM 8.8 mg/dL (8.5-10.1); CHLORIDE 103 mmol/L (98-107); CO2 23 mmol/L (21-32); GLUCOSE,RANDOM 148 mg/dL (74-106); POTASSIUM 3.8 mmol/L (3.5-5.1); SGOT/AST 11 U/L (15-37); SGPT/ALT 26 U/L (12-78); SODIUM 139 mmol/L (136-145)
[2017-06-26 07:11] LABS: ALK PHOS 84 U/L (45-117); BILIRUBIN,TOTAL 1.5 mg/dL (0.2-1.0); CREATININE 0.8 mg/dL (0.7-1.3); TOT PROT 6.9 g/dl (6.4-8.2)
[2017-06-26] MEDS ORDERED: VANCOMYCIN 1,500 MG in DEXTROSE 5%-WATER - 500 ML IVPB ONE (10:00)
--- NOTE | 2017-06-26 11:06 | EKG ---
Test Reason : Blood Pressure : / mmHG Vent. Rate : 094 BPM Atrial Rate : 094 BPM P-R Int : 156 ms QRS Dur : 088 ms QT Int : 352 ms P-R-T Axes : 041 054 042 degrees QTc Int : 440 ms NORMAL SINUS RHYTHM NORMAL ECG WHEN COMPARED WITH ECG OF 31-JAN-2008 22:44, NO SIGNIFICANT CHANGE WAS FOUND BASELINE ARTIFACT Confirmed by GURWINDER SHETTY MD ([id number]) on 06/26/2017 11:06:15 AM Referred By: Confirmed By:GURWINDER SHETTY MD
--- NOTE | 2017-06-26 11:32 | PN ---
Progress Note (short form) - Note Progress Note: ID consult dictated imp/reccd 52 year old man went to work yesterday am- seen by sister the night before - he was well, no complaints brought home by coworkers around 11 - he was complaining of feeling cold and was confused he was brought to ED by his family-fever and confusion ct head- no acute process-sinusitis mri brain- movement aritfact ct abd/pelvis- splenomegaly, hepatic steatosis seen by neurology last night LP with 1 wbc, protein 65 no travel no substance use (remote history) in the middle of a divorce goes [facility]- ride dirt bikes, goes hunting, no raw meats remains confused and agitated speaking in Italian- saying mother, not able to answer questions or follow commands no rash fever/confusion LP not consistent with meningitis (but done after antibiotics) ?encephalitis ?sepsis send HSV PCR- called micro - they will send send lyme serology, rpr, hiv continue vanco/rocephin/acyclovir for now f/u cultures will check with [facility] to see if additional fluid is present- viral encephalitis panel? may need repeat LP will start IVF patient is on acyclovir over 45 minutes spent in the care of this critically ill icu patient, d/w family at length will d/w PMD and neurology
[2017-06-26] MEDS ORDERED: SODIUM CHLORIDE 1,000 ML IV SCH (13:15)
--- NOTE | 2017-06-26 13:49 | CON.PULM ---
Consult Consult Specialty:: PULM/CCM Referred by:: YASIR Reason for Consultation:: AMS - History of Present Illness Chief Complaint: AMS History of Present Illness: 52 M, admitted via the ER due to agitation and confusion. 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 EMS was called and brought him to the hospital. LP: essentially normal. Awake but confused and agitated. No specific travel history or sick contacts, although he apparently hunts. - History Source History Provided By: Medical Record Limitations to Obtaining History: Clinical Condition - Alcohol/Substance Use Hx Alcohol Use: No - Smoking History Smoking history: Never smoked Have you smoked in the past 12 months: No Aproximately how many cigarettes per day: 0 Home Medications - Allergies Allergies/Adverse Reactions: Allergies Allergy/AdvReac Type Severity Reaction Status Date / Time No Known Allergies Allergy Verified 06/25/17 13:25 - Home Medications Home Medications: Ambulatory Orders NK [No Known Home Medication] 06/25/17 Family Disease History - Family Disease History Family Disease History: Diabetes: Father, Mother, Brother Review of Systems Unable to obtain ROS, reason: cannot obtain Physical Exam Vital Sings: Vital Signs Temperature 100.1 F H 06/26/17 10:00 Pulse Rate 100 H 06/26/17 10:00 Respiratory Rate 24 06/26/17 10:00 Blood Pressure 151/97 06/26/17 10:00 O2 Sat by Pulse Oximetry (%) 96 06/26/17 09:00 Constitutional: Yes: Anxious, Other (agitated / confused ) Eyes: Yes: Conjunctiva Clear, EOM Intact HENT: Yes: Atraumatic, Normocephalic Neck: Yes: Supple, Trachea Midline Cardiovascular: Yes: Tachycardia Respiratory: Yes: CTA Bilaterally ...Inspection: Yes: WNL ...Clubbing: No Gastrointestinal: Yes: Normal Bowel Sounds, Soft Musculoskeletal: Yes: WNL Extremities: Yes: WNL Edema: No Peripheral Pulses WNL: Yes Integumentary: Yes: WNL Neurological: Yes: Confusion, Other (agitation / confusion ). No: Asterixis, Facial Droop, Seizure, Tremors Labs: CBC, BMP 06/26/17 06:15 06/26/17 06:15 ABG Results ABG pH 7.44 (7.35-7.45) 06/25/17 15:30 ABG pCO2 at Pt Temp 31.7 mmHg (35-45) L 06/25/17 15:30 ABG pO2 at Pt Temp 69.2 mmHg (80-100) L 06/25/17 15:30 ABG HCO3 21.3 meq/L (22-26) L 06/25/17 15:30 ABG O2 Sat (Measured) 94.2 % (90-98.9) 06/25/17 15:30 ABG O2 Content 26.0 % vol (15-22) H 06/25/17 15:30 ABG Base Excess -1.0 meq/l (-2-2) 06/25/17 15:30 Imaging - Results Chest X-ray: Report Reviewed, Image Reviewed Cat Scan: Report Reviewed, Image Reviewed MRI: Report Reviewed, Image Reviewed Problem List - Problems (1) Encephalitis Code(s): G04.90 - ENCEPHALITIS AND ENCEPHALOMYELITIS, UNSPECIFIED (2) Altered mental state Code(s): R41.82 - ALTERED MENTAL STATUS, UNSPECIFIED Qualifiers: Altered mental status type: unspecified Qualified Code(s): R41.82 - Altered mental status, unspecified Assessment/Plan Isolation Fall precautions BZ for agitation Follow cultures IVF Agree with ABX / Anti-viral per ID Aspiration precautions Will follow Thank you. Dr Hoffman
[2017-06-26 14:52] LABS: RPR NONREACTIVE (NONREACTIVE)
[2017-06-26] MEDS: IBUPROFEN 800 MG/8 ML IJ IVPB PRN ×2 (15:56)
--- NOTE | 2017-06-26 16:06 | CONS ---
INFECTIOUS DISEASE CONSULTATION DATE OF CONSULTATION: DATE OF DICTATION: 06/26/2017 Requested by Jaspreet Cooley MD. This is a 52-year-old man who went to work yesterday morning. He was seen by his sister the night before. He was well. He had no complaints. He was brought home the following morning by coworkers around 11:00 complaining of feeling cold and he was confused. He was brought to the ER by his family with fever and confusion. He had a CAT scan that showed some sinusitis, but no other acute process. He had an MRI of his brain that was complicated by movement artifact. He had a CAT of his abdomen and pelvis that showed some splenomegaly and hepatic steatosis. He received vancomycin, Rocephin, and acyclovir in the ER. LP was attempted, unsuccessfully. He was admitted and the neurologist came last night and did an LP which showed 1 white cells, 3 red cells, and a protein of 65. There is no history of any travel. He has a remote history of substance use. He is in the middle of divorce. He goes to [facility] and spends time there apparently with his family with his son and friends. Apparently, they ride dirt bikes and go hunting. There is no history of eating any rare meats on these trips. Family is not aware of any tick bites. This morning, he remains confused and agitated. He is speaking in Kinyarwanda. Apparently, he is saying mother and father. He is not able to answer any questions or follow commands. He has no rash or bites. PAST MEDICAL HISTORY: Notable for arm surgery for fracture and he has type 2 diabetes. SOCIAL HISTORY: There is no history of any cigarette use. Former alcohol and marijuana user. 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 ALLERGIES: He has no known drug allergies. MEDICATIONS: He takes no medications. REVIEW OF SYSTEMS: Per the sister is that he felt fine prior to this. PHYSICAL EXAMINATION: Vital signs: His T-maximum was 103 last night. Current temperature is 100.3 rectally. Pulse is 102. Blood pressure is 105/69. Respiratory rate is 22. He is saturating 96% on room air. HEENT: He is normocephalic. He has dry oral mucosa. General: He is agitated right now. He is moving all over the bed. Neck: He is turning his neck quite comfortably. There is no evidence of any neck stiffness, though he is not following any commands. Lungs: Clear to auscultation. Heart: Regular rate and rhythm. Abdomen: Soft. Extremities: He has diffuse tenderness of his arms and legs everywhere you touch him and his extremities are without edema. Skin: He has no rash. Yesterday his white count was 11.4, today 8.4, hemoglobin 15.1, platelets are 165. His BUN and creatinine are 10 and 0.8. AST of 11, ALT of 26, alkaline phosphatase of 84. Ammonia was less than 10 with a lactic acid of 1.8. His total bilirubin is 1.5. Urinalysis is negative. His CSF had 1 white cell, 3 red cells, with a total protein of 65, and a glucose of 73. Urine toxicology is negative, as well as alcohol. He had an influenza screen that was negative in the emergency room. His CSF Gram stain is negative. In summary, this is a 52-year-old man with fever and confusion. LP not consistent with meningitis, but it was done after antibiotics were started. Possible encephalitis. Possible sepsis. Would send an HSV PCR. I called [facility]. They will send this and Lyme serology, as well as an RPR, and HIV. Follow up cultures. I spoke with Microbiology. Will check with Microbiology to see if additional fluid is present to send further studies. May need repeat LP. Would like to send a viral encephalitis panel if possible. Will start IV fluids. The patient is on acyclovir. Will discuss with the primary doctor as well as Neurology. EMMA MELTON M.D. [id number]
[2017-06-26] MEDS ORDERED: LORazepam 2 MG/ML SDV VIAL IVPUSH ONE ×2 (16:41→20:00)
[2017-06-26] MEDS ORDERED: LORazepam 2 MG/ML SDV VIAL ONE (16:45)
[2017-06-26] MEDS ORDERED: PT OWN MED DRAWER 7, Y5N ONE (17:47)
--- NOTE | 2017-06-26 18:15 | PN ---
Progress Note, Physician History of Present Illness: This is a 52 year old man who was brought in to the ED because of agitation and confusion. Family notes that he was ok last night. He went to work this morning and while there became confused. According to his coworkers, he worsened throughout the day and he had to be driven home. Once home, family called EMS. They noted that he has been tremulous and sweaty. Per family member at the bedside, he only has h/o DM , on no medication lately , no h/o psych disorder, no sick contact or recent traveling. Per family , SLE runs in family ; has a cousin who was sick lately w fever but he has no contact with her. F/U today; He still remains confused and lethargic however slightly better that yesterday; follows simple commands. His spinal tap was inconclusive ; WBC 1 , RBC 3 Pr 65 mildly elevated. Per family he was in [facility] ago and was there for hunting in the past Nov as well . - Current Medication List Current Medications: Active Medications Acetaminophen (Tylenol -) 650 mg PO Q4H PRN PRN Reason: FEVER OR PAIN Acetaminophen (Tylenol Suppository -) 650 mg [place] Q4H PRN PRN Reason: FEVER OR PAIN Haloperidol (Haldol Injection (Fast Acting) -) 5 mg IM Q4H PRN PRN Reason: AGITATION Last Admin: 06/26/17 15:57 Dose: 5 mg Sodium Chloride (Normal Saline -) 1,000 mls @ 100 mls/hr IV ASDIR MARK Last Admin: 06/25/17 20:15 Dose: 100 mls/hr Acyclovir 1,000 mg/ Dextrose 270 mls @ 270 mls/hr IVPB Q8H-IV MARK Last Admin: 06/26/17 17:52 Dose: 270 mls/hr CEFTRIAXONE IN IS-OSM DEXTROSE (Ceftriaxone 2 Gm-D5w Bag) 2 gm in 50 mls @ 100 mls/hr IVPB Q12H MARK Last Admin: 06/26/17 17:52 Dose: 100 mls/hr Sodium Chloride (Normal Saline -) 1,000 mls @ 100 mls/hr IV ASDIR MARK Last Admin: 06/26/17 13:20 Dose: 100 mls/hr Vancomycin HCl 1,250 mg/ (Dextrose) 250 mls @ 166.667 mls/hr IVPB BID MARK PRN Reason: Protocol Ibuprofen (Caldolor Injection -) 600 mg IVPB Q6H PRN PRN Reason: FEVER Last Admin: 06/26/17 15:56 Dose: 600 mg Insulin Aspart (Novolog Vial Sliding Scale -) 0 vial SQ ACHS MARK PRN Reason: Protocol Last Admin: 06/26/17 17:41 Dose: Not Given - Objective Vital Signs: Vital Signs Temperature 100.3 F H 06/26/17 14:00 Pulse Rate 86 06/26/17 18:00 Respiratory Rate 24 06/26/17 18:00 Blood Pressure 130/88 06/26/17 18:00 O2 Sat by Pulse Oximetry (%) 96 06/26/17 14:44 Constitutional: Yes: Anxious Eyes: Yes: EOM Intact HENT: Yes: WNL Neck: Yes: Rigid Cardiovascular: Yes: Regular Rate and Rhythm Respiratory: Yes: CTA Bilaterally Musculoskeletal: Yes: WNL Extremities: Yes: WNL Edema: LUE: Trace, RUE: Trace, LLE: Trace, RLE: Trace Peripheral Pulses WNL: Yes Neurological: Yes: Lethargy ...Motor Strength: WNL Psychiatric: Yes: Agitated Labs: CBC, BMP 06/26/17 06:15 06/26/17 06:15 INR, PTT INR 1.01 (0.82-1.09) 06/25/17 14:02 - ....Imaging Cat Scan: Report Reviewed, Image Reviewed (CT wo no acute events MRI ; lots of movement artifact) MRI: Report Reviewed Problem List - Problems (1) Altered mental state Code(s): R41.82 - ALTERED MENTAL STATUS, UNSPECIFIED Qualifiers: Altered mental status type: unspecified Qualified Code(s): R41.82 - Altered mental status, unspecified (2) Encephalitis Code(s): G04.90 - ENCEPHALITIS AND ENCEPHALOMYELITIS, UNSPECIFIED (3) Diabetes mellitus, new onset Code(s): E11.9 - TYPE 2 DIABETES MELLITUS WITHOUT COMPLICATIONS Assessment/Plan 52 y/o a PMH of DM , on no mediaction p/w acute onset of AMS , confusion and fever from 11: 30 am today . [facility] wo no acute events ; on exam neck rigidity , delirious and agitated, moves all exts; I performed a spinal tap and obtained clear fluid , x4 tube . Hx and exam suggestive of possible meningitis/encephalitis , viral vs bacterial . [place] will consider Lyme and also other viral cause including [place] virus, [place] encephalitis, EBV, HZV , Eastern equine encephalitis HSV1 and 2, HZV and [place] steph-group virus. Even though the first spinal tap was inconclusive because of early onset of symptoms, still viral etiology is on the top of list so I will repeat spinal tap tomorrow and we will send CSF to check above viral etiology and encephalitis panel. We will c/w acyclovir tx will repeat CTH wo [facility] Neurocheck q 4hours Isolation precautions Infectious input appreciated Health maintenance per primary team. Thank you. Abdelrahman Darling MD [phone]
[2017-06-26] MEDS ORDERED: VANCOMYCIN 1,000 MG VIAL (RESTRICTED TO ID ONLY) IVPB SCH (20:00)
--- NOTE | 2017-06-26 20:33 | PN ---
Progress Note, Physician Chief Complaint: AMS History of Present Illness: periods of agitation, ativan ordered yulissa restraints for safety WBC normalized CSF protein mildly elevated, awaiting cultures, r/o meningitis -first MRI/CT head unremarkable seen by Neurology -seen by ID -On IV abx and antivirals febrile Isolation precautions: airborne and contact until etiology clear received Ativan 2 mg prior to repeat Ct head 45 minutes ago, pt calm at this time - Current Medication List Current Medications: Active Medications Acetaminophen (Tylenol -) 650 mg PO Q4H PRN PRN Reason: FEVER OR PAIN Acetaminophen (Tylenol Suppository -) 650 mg [place] Q4H PRN PRN Reason: FEVER OR PAIN Haloperidol (Haldol Injection (Fast Acting) -) 5 mg IM Q4H PRN PRN Reason: AGITATION Last Admin: 06/26/17 15:57 Dose: 5 mg Sodium Chloride (Normal Saline -) 1,000 mls @ 100 mls/hr IV ASDIR MARK Last Admin: 06/25/17 20:15 Dose: 100 mls/hr Acyclovir 1,000 mg/ Dextrose 270 mls @ 270 mls/hr IVPB Q8H-IV MARK Last Admin: 06/26/17 17:52 Dose: 270 mls/hr CEFTRIAXONE IN IS-OSM DEXTROSE (Ceftriaxone 2 Gm-D5w Bag) 2 gm in 50 mls @ 100 mls/hr IVPB Q12H MARK Last Admin: 06/26/17 17:52 Dose: 100 mls/hr Sodium Chloride (Normal Saline -) 1,000 mls @ 100 mls/hr IV ASDIR MARK Last Admin: 06/26/17 13:20 Dose: 100 mls/hr Vancomycin HCl 1,250 mg/ (Dextrose) 250 mls @ 166.667 mls/hr IVPB BID MARK PRN Reason: Protocol Ibuprofen (Caldolor Injection -) 600 mg IVPB Q6H PRN PRN Reason: FEVER Last Admin: 06/26/17 15:56 Dose: 600 mg Insulin Aspart (Novolog Vial Sliding Scale -) 0 vial SQ ACHS MARK PRN Reason: Protocol Last Admin: 06/26/17 17:41 Dose: Not Given - Objective Vital Signs: Vital Signs Temperature 100.3 F H 06/26/17 14:00 Pulse Rate 86 06/26/17 18:00 Respiratory Rate 24 06/26/17 18:00 Blood Pressure 130/88 06/26/17 18:00 O2 Sat by Pulse Oximetry (%) 96 06/26/17 14:44 Constitutional: Yes: Well Nourished, No Distress, Calm Cardiovascular: Yes: Regular Rate and Rhythm Respiratory: Yes: Regular Gastrointestinal: Yes: Normal Bowel Sounds Genitourinary: Yes: Incontinence Musculoskeletal: Yes: WNL Extremities: Yes: WNL Edema: No Peripheral Pulses WNL: Yes Neurological: Yes: Other (arousable but lethargic and confused) Labs: CBC, BMP 06/26/17 06:15 06/26/17 06:15 INR, PTT INR 1.01 (0.82-1.09) 06/25/17 14:02 Problem List - Problems (1) Altered mental state Assessment/Plan: -first MRI/CT head unremarkable -repeat CT head done, results pending -Neurology on board -CSF culture pending -CSF protein mildly elevated -labs in AM -Avoid benzodiazepines for agitation, may cause more confusion -Haldol 2 mg IVP Q4H PRN -Neuro check Q4H Code(s): R41.82 - ALTERED MENTAL STATUS, UNSPECIFIED Qualifiers: Altered mental status type: unspecified Qualified Code(s): R41.82 - Altered mental status, unspecified (2) Encephalitis Code(s): G04.90 - ENCEPHALITIS AND ENCEPHALOMYELITIS, UNSPECIFIED (3) Sepsis Assessment/Plan: WBC decreased -still febrile Code(s): A41.9 - SEPSIS, UNSPECIFIED ORGANISM Qualifiers: Sepsis type: sepsis due to unspecified organism Qualified Code(s): A41.9 - Sepsis, unspecified organism (4) HTN (hypertension) Assessment/Plan: secondary to agitation Code(s): I10 - ESSENTIAL (PRIMARY) HYPERTENSION (5) Diabetes mellitus Assessment/Plan: -on Novolog sliding scale -BGM Code(s): E11.9 - TYPE 2 DIABETES MELLITUS WITHOUT COMPLICATIONS Assessment/Plan see problem list Continue current care plan
[2017-06-26] MEDS ORDERED: LORazepam 2 MG/ML SDV VIAL IVPUSH PRN (20:51)
[2017-06-26] MEDS ORDERED: VANCOMYCIN 1,500 MG in DEXTROSE 5%-WATER - 500 ML IVPB SCH (22:00)
[2017-06-26] MEDS ORDERED: VANCOMYCIN 1,250 MG in DEXTROSE 5%-WATER - 250 ML IVPB SCH (22:00)
[2017-06-26] MEDS: HALOPERIDOL LACTATE 5 MG/ML IVPUSH PRN (22:07)
[2017-06-27] MEDS: ACYCLOVIR INJECTION 1,000 MG in DEXTROSE 5%-WATER - 250 ML IVPB SCH ×5 (02:31→18:50)
[2017-06-27] MEDS: IBUPROFEN 800 MG/8 ML IJ IVPB PRN (03:08)
[2017-06-27] MEDS: HALOPERIDOL LACTATE 5 MG/ML IVPUSH PRN ×3 (03:11→22:24)
[2017-06-27] MEDS: CEFTRIAXONE IN IS-OSM DEXTROSE 2 GM/50 ML BAG IVPB SCH ×3 (05:44→18:50)
[2017-06-27 06:20] LABS: EOS % 2.2 % (0-4.5); HEMATOCRIT 45.7 % (35.4-49); HEMOGLOBIN 15.9 GM/dL (11.7-16.9); LYMPH % 24.1 % (8-40); MCH 28.2 pg (25.7-33.7); MCHC 34.7 g/dl (32.0-35.9); MEAN CELL VOLUME 81.2 fl (80-96); MEAN PLT VOLUME 8.1 fl (7.5-11.1); MONO % 10.9 % (3.8-10.2); NEUT % 61.8 % (42.8-82.8); PLATELET COUNT 184 K/MM3 (134-434); RBC 5.63 M/mm3 (4.00-5.60); RDW 12.8 % (11.9-15.9); WHITE BLOOD COUNT 9.5 K/mm3 (4.0-10.0)
[2017-06-27] MEDS: INSULIN SLIDING SCALE (NOVOLOG) 1 VIAL SQ SCH ×4 (06:42→22:24)
[2017-06-27 06:59] LABS: CHLORIDE 103 mmol/L (98-107); POTASSIUM 3.4 mmol/L (3.5-5.1); SODIUM 137 mmol/L (136-145)
[2017-06-27 07:06] LABS: ALBUMIN 3.9 g/dl (3.4-5.0); ALK PHOS 92 U/L (45-117); ANION GAP 10 (8-16); BILIRUBIN,TOTAL 1.8 mg/dL (0.2-1.0); BLOOD UREA NITROGEN 9 mg/dL (7-18); CALCIUM 9.3 mg/dL (8.5-10.1); CO2 24 mmol/L (21-32); CREATININE 0.8 mg/dL (0.7-1.3); GLUCOSE,RANDOM 133 mg/dL (74-106); SGOT/AST 15 U/L (15-37); SGPT/ALT 28 U/L (12-78); TOT PROT 7.6 g/dl (6.4-8.2)
[2017-06-27] MEDS ORDERED: SODIUM CHLORIDE 1,000 ML IV SCH (09:00)
--- NOTE | 2017-06-27 09:28 | PN ---
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 06/25/17 13:40 Blood - Peripheral Venous Blood Culture - Preliminary NO GROWTH OBTAINED AFTER 24 HOURS, INCUBATION TO CONTINUE FOR 4 DAYS. 06/25/17 14:02 Urine - Urine Clean Catch Urine Culture - Final NO GROWTH OBTAINED 06/25/17 22:25 Cerebral Spinal Fluid - Lumbar Puncture Gram Stain - Final 06/25/17 20:54 Nasopharyngeal Swab Influenza Types A,B Antigen (BENSON) - Final 06/25/17 20:54 Nasopharyngeal Swab - Final Laboratory Tests 06/26/17 13:45 RPR Titer Nonreactive HIV 1&2 Antibody Screen Negative HIV P24 Antigen Negative a/p fever/confusion suspect encephalitis continue acyclovir/ceftriaxone/IVF f/u cultures hsv pcr on csf pending have ordered encephalitis panel on csf as well will try to obtain powassan virus IGM on csf if possible as well clinically improved follow renal function closely d/c isolation
[2017-06-27] MEDS ORDERED: SODIUM CHLORIDE 1,000 ML with POTASSIUM CHLORIDE 20 MEQ IVPB SCH (10:13)
[2017-06-27] MEDS ORDERED: SODIUM CHLORIDE 1,000 ML with POTASSIUM CHLORIDE 20 MEQ IV SCH (10:15)
--- NOTE | 2017-06-27 10:16 | PN ---
Progress Note (short form) - Note Progress Note: More oriented today. 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 Intake & Output 06/24/17 06/25/17 06/26/17 06/27/17 23:59 23:59 23:59 23:59 Intake Total 100 3250 1200 Output Total 3 Balance 100 3247 1200 Weight 221 lb 6.4 oz 215 lb 9.6 oz 211 lb Last Vital Signs Temp Pulse Resp BP Pulse Ox 100.2 F H 119 H 24 129/107 96 06/27/17 00:00 06/27/17 06:00 06/27/17 06:00 06/27/17 06:00 06/26/17 21:00 Active Medications Acetaminophen (Tylenol -) 650 mg PO Q4H PRN PRN Reason: FEVER OR PAIN Acetaminophen (Tylenol Suppository -) 650 mg [place] Q4H PRN PRN Reason: FEVER OR PAIN Haloperidol (Haldol Injection (Fast Acting) -) 2 mg IVPUSH Q4H PRN PRN Reason: AGITATION Last Admin: 06/27/17 03:11 Dose: 2 mg Acyclovir 1,000 mg/ Dextrose 270 mls @ 270 mls/hr IVPB Q8H-IV MARK Last Admin: 06/27/17 02:31 Dose: 270 mls/hr CEFTRIAXONE IN IS-OSM DEXTROSE (Ceftriaxone 2 Gm-D5w Bag) 2 gm in 50 mls @ 100 mls/hr IVPB Q12H MARK Last Admin: 06/27/17 05:44 Dose: 100 mls/hr Potassium Chloride 20 meq/ (Sodium Chloride) 1,010 mls @ 125 mls/hr IV Q8H MARK Ibuprofen (Caldolor Injection -) 600 mg IVPB Q6H PRN PRN Reason: FEVER Last Admin: 06/27/17 03:08 Dose: 600 mg Insulin Aspart (Novolog Vial Sliding Scale -) 1 vial SQ ACHS MARK PRN Reason: Protocol Last Admin: 06/27/17 06:42 Dose: Not Given Constitutional: Yes: More oriented, agitated / confused Eyes: Yes: Conjunctiva Clear, EOM Intact HENT: Yes: Atraumatic, Normocephalic Neck: Yes: Supple, Trachea Midline Cardiovascular: Yes: Tachycardia Respiratory: Yes: CTA Bilaterally ...Inspection: Yes: WNL ...Clubbing: No Gastrointestinal: Yes: Normal Bowel Sounds, Soft Musculoskeletal: Yes: WNL Extremities: Yes: WNL Edema: No Peripheral Pulses WNL: Yes Integumentary: Yes: WNL Neurological: Yes: Confusion, Other (agitation / confusion ). No: Asterixis, Facial Droop, Seizure, Tremors Labs: Laboratory Results - last 24 hr 06/26/17 06/26/17 06/26/17 05:37 12:38 13:45 WBC RBC Hgb Hct MCV MCH MCHC RDW Plt Count MPV Neutrophils % Lymphocytes % Monocytes % Eosinophils % Basophils % Sodium Potassium Chloride Carbon Dioxide Anion Gap BUN Creatinine Creat Clearance w eGFR POC Glucometer 161.75352 133.17430 Random Glucose Calcium Total Bilirubin AST ALT Alkaline Phosphatase Total Protein Albumin RPR Titer Nonreactive HIV 1&2 Antibody Screen Negative HIV P24 Antigen Negative 06/27/17 06/27/17 06:05 06:05 WBC 9.5 RBC 5.63 H Hgb 15.9 Hct 45.7 MCV 81.2 MCH 28.2 MCHC 34.7 RDW 12.8 Plt Count 184 MPV 8.1 Neutrophils % 61.8 Lymphocytes % 24.1 D Monocytes % 10.9 H Eosinophils % 2.2 Basophils % 1.0 Sodium 137 Potassium 3.4 L Chloride 103 Carbon Dioxide 24 Anion Gap 10 BUN 9 Creatinine 0.8 Creat Clearance w eGFR > 60 POC Glucometer Random Glucose 133 H Calcium 9.3 Total Bilirubin 1.8 H AST 15 D ALT 28 Alkaline Phosphatase 92 Total Protein 7.6 Albumin 3.9 RPR Titer HIV 1&2 Antibody Screen HIV P24 Antigen Imaging - Results Chest X-ray: Report Reviewed, Image Reviewed Cat Scan: Report Reviewed, Image Reviewed MRI: Report Reviewed, Image Reviewed Problem List - Problems (1) Encephalitis Code(s): G04.90 - ENCEPHALITIS AND ENCEPHALOMYELITIS, UNSPECIFIED (2) Altered mental state Code(s): R41.82 - ALTERED MENTAL STATUS, UNSPECIFIED Qualifiers: Altered mental status type: unspecified Qualified Code(s): R41.82 - Altered mental status, unspecified Assessment/Plan Fall precautions BZ for agitation Follow cultures IVF Agree with ABX / Anti-viral per ID Aspiration precautions Dr Hoffman Problem List - Problems (1) Encephalitis Code(s): G04.90 - ENCEPHALITIS AND ENCEPHALOMYELITIS, UNSPECIFIED (2) Altered mental state Code(s): R41.82 - ALTERED MENTAL STATUS, UNSPECIFIED Qualifiers: Altered mental status type: unspecified Qualified Code(s): R41.82 - Altered mental status, unspecified
[2017-06-27] MEDS ORDERED: SODIUM CHLORIDE 0.9%/KCL 20 MEQ/1,000 ML INFUS.BAG IV SCH (10:51)
[2017-06-27] MEDS: SODIUM CHLORIDE 0.9%/KCL 20 MEQ/1,000 ML INFUS.BAG IV SCH ×2 (11:56→21:30)
--- NOTE | 2017-06-27 20:06 | PN ---
Progress Note, Physician Chief Complaint: AMS History of Present Illness: This is a 52 year old man who was brought in to the ED because of agitation and confusion. Family notes that he was ok last night. He went to work this morning and while there became confused. According to his coworkers, he worsened throughout the day and he had to be driven home. Once home, family called EMS. They noted that he has been tremulous and sweaty. Per family member at the bedside, he only has h/o DM , on no medication lately , no h/o psych disorder, no sick contact or recent traveling. Per family , SLE runs in family ; has a cousin who was sick lately w fever but he has no contact with her. F/U today; He still remains confused and lethargic however slightly better that yesterday; follows simple commands. His spinal tap was inconclusive ; WBC 1 , RBC 3 Pr 65 mildly elevated. Per family he was in [facility] 2 weeks ago and was there for hunting in the past Nov as well . 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 He denies any headache , visual symptoms , numbness or weakness; no neck pain . - Current Medication List Current Medications: Active Medications Acetaminophen (Tylenol -) 650 mg PO Q4H PRN PRN Reason: FEVER OR PAIN Acetaminophen (Tylenol Suppository -) 650 mg [place] Q4H PRN PRN Reason: FEVER OR PAIN Haloperidol (Haldol Injection (Fast Acting) -) 2 mg IVPUSH Q4H PRN PRN Reason: AGITATION Last Admin: 06/27/17 13:25 Dose: 2 mg Acyclovir 1,000 mg/ Dextrose 270 mls @ 270 mls/hr IVPB Q8H-IV MARK Last Admin: 06/27/17 18:50 Dose: 270 mls/hr CEFTRIAXONE IN IS-OSM DEXTROSE (Ceftriaxone 2 Gm-D5w Bag) 2 gm in 50 mls @ 100 mls/hr IVPB Q12H MARK Last Admin: 06/27/17 18:50 Dose: 100 mls/hr Potassium Chloride/Sodium Chloride (Ns+20 Meq Kcl -) 20 meq in 1,000 mls @ 125 mls/hr IV Q8H MARK Last Admin: 06/27/17 11:56 Dose: 125 mls/hr Ibuprofen (Caldolor Injection -) 600 mg IVPB Q6H PRN PRN Reason: FEVER Last Admin: 06/27/17 03:08 Dose: 600 mg Insulin Aspart (Novolog Vial Sliding Scale -) 1 vial SQ ACHS MARK PRN Reason: Protocol Last Admin: 06/27/17 16:20 Dose: Not Given - Objective Vital Signs: Vital Signs Temperature 100.2 F H 06/27/17 00:00 Pulse Rate 91 H 06/27/17 17:21 Respiratory Rate 20 06/27/17 17:21 Blood Pressure 121/78 06/27/17 17:21 O2 Sat by Pulse Oximetry (%) 96 06/27/17 08:00 Constitutional: Yes: Well Nourished, Mild Distress Eyes: Yes: WNL HENT: Yes: Atraumatic Neck: Yes: Supple Cardiovascular: Yes: Regular Rate and Rhythm Respiratory: Yes: CTA Bilaterally Musculoskeletal: Yes: WNL Extremities: Yes: WNL Edema: No Neurological: Yes: WNL ...Motor Strength: WNL Psychiatric: Yes: Alert Labs: CBC, BMP 06/27/17 06:05 06/27/17 06:05 INR, PTT INR 1.01 (0.82-1.09) 06/25/17 14:02 - ....Imaging Cat Scan: Report Reviewed, Image Reviewed (Repeatr CT wo , no acute finding.) MRI: Report Reviewed, Image Reviewed Problem List - Problems (1) Altered mental state Code(s): R41.82 - ALTERED MENTAL STATUS, UNSPECIFIED Qualifiers: Altered mental status type: unspecified Qualified Code(s): R41.82 - Altered mental status, unspecified (2) Encephalitis Code(s): G04.90 - ENCEPHALITIS AND ENCEPHALOMYELITIS, UNSPECIFIED (3) Diabetes mellitus, new onset Code(s): E11.9 - TYPE 2 DIABETES MELLITUS WITHOUT COMPLICATIONS Assessment/Plan 52 y/o a PMH of DM , on no mediaction p/w acute onset of AMS , confusion and fever from 11: 30 am today . [facility] wo no acute events ; on exam neck rigidity , delirious and agitated, moves all exts; I performed a spinal tap and obtained clear fluid , x4 tube . Hx and exam suggestive of possible meningitis/encephalitis , viral vs bacterial . His mental status is significantly improved , still mildly confused . 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 His repeat CT head wo was unremarkable. MRI brain was motion artifact , so we will repeat it. [place] will consider Lyme and also other viral cause including [place] virus, [place] encephalitis, EBV, HZV , Eastern equine encephalitis HSV1 and 2, HZV and [place] steph-group virus. Even though the first spinal tap was inconclusive because of early onset of symptoms, still viral etiology is on the top of list so we will send CSF to check above viral etiology and encephalitis panel. Additionally ; [place] virus IgG per ID. We will c/w acyclovir tx will monitor clinically Isolation precautions Infectious input appreciated Health maintenance per primary team. Thank you for allowing us to participate in the care of this patient. Abdelrahman Darling MD [phone]
--- NOTE | 2017-06-27 21:10 | PN ---
Progress Note, Physician Chief Complaint: AMS History of Present Illness: periods of agitation, ativan ordered yulissa restraints for safety WBC normalized CSF protein mildly elevated, awaiting cultures, r/o meningitis -first MRI/CT head unremarkable seen by Neurology -seen by ID -On IV abx and antivirals febrile Isolation precautions: airborne and contact until etiology clear received Ativan 2 mg prior to repeat Ct head 45 minutes ago, pt calm at this time Today his mental status is much improved, oriented x 3, knows he's in the hospital, knows the president, still with periodic anxiousness, agitation and weakness. Complains of generalized pain, wants to speak to Dr Cooley - Current Medication List Current Medications: Active Medications Acetaminophen (Tylenol -) 650 mg PO Q4H PRN PRN Reason: FEVER OR PAIN Acetaminophen (Tylenol Suppository -) 650 mg [place] Q4H PRN PRN Reason: FEVER OR PAIN Haloperidol (Haldol Injection (Fast Acting) -) 2 mg IVPUSH Q4H PRN PRN Reason: AGITATION Last Admin: 06/27/17 13:25 Dose: 2 mg Acyclovir 1,000 mg/ Dextrose 270 mls @ 270 mls/hr IVPB Q8H-IV MARK Last Admin: 06/27/17 18:50 Dose: 270 mls/hr CEFTRIAXONE IN IS-OSM DEXTROSE (Ceftriaxone 2 Gm-D5w Bag) 2 gm in 50 mls @ 100 mls/hr IVPB Q12H MARK Last Admin: 06/27/17 18:50 Dose: 100 mls/hr Potassium Chloride/Sodium Chloride (Ns+20 Meq Kcl -) 20 meq in 1,000 mls @ 125 mls/hr IV Q8H MARK Last Admin: 06/27/17 11:56 Dose: 125 mls/hr Ibuprofen (Caldolor Injection -) 600 mg IVPB Q6H PRN PRN Reason: FEVER Last Admin: 06/27/17 03:08 Dose: 600 mg Insulin Aspart (Novolog Vial Sliding Scale -) 1 vial SQ ACHS MARK PRN Reason: Protocol Last Admin: 06/27/17 16:20 Dose: Not Given - Objective Vital Signs: Vital Signs Temperature 100.2 F H 06/27/17 00:00 Pulse Rate 91 H 06/27/17 17:21 Respiratory Rate 20 06/27/17 17:21 Blood Pressure 121/78 06/27/17 17:21 O2 Sat by Pulse Oximetry (%) 96 06/27/17 08:00 Constitutional: Yes: Well Nourished, Calm, Anxious Cardiovascular: Yes: Regular Rate and Rhythm Respiratory: Yes: Regular Musculoskeletal: Yes: WNL Extremities: Yes: WNL Edema: No Peripheral Pulses WNL: Yes Neurological: Yes: Alert, Oriented Psychiatric: Yes: Alert, Oriented, Agitated (periodically) Labs: CBC, BMP 06/27/17 06:05 06/27/17 06:05 INR, PTT INR 1.01 (0.82-1.09) 06/25/17 14:02 Problem List - Problems (1) Sepsis Assessment/Plan: WBC decreased -still febrile Code(s): A41.9 - SEPSIS, UNSPECIFIED ORGANISM Qualifiers: Sepsis type: sepsis due to unspecified organism Qualified Code(s): A41.9 - Sepsis, unspecified organism (2) Altered mental state Assessment/Plan: -first MRI/CT head unremarkable -repeat CT head done, results unchanged -Neurology on board -CSF culture pending -CSF protein mildly elevated -labs in AM -Avoid benzodiazepines for agitation, may cause more confusion -Haldol 2 mg IVP Q4H PRN -Neuro check Q4H Code(s): R41.82 - ALTERED MENTAL STATUS, UNSPECIFIED Qualifiers: Altered mental status type: unspecified Qualified Code(s): R41.82 - Altered mental status, unspecified (3) Encephalitis Code(s): G04.90 - ENCEPHALITIS AND ENCEPHALOMYELITIS, UNSPECIFIED (4) HTN (hypertension) Assessment/Plan: secondary to agitation Code(s): I10 - ESSENTIAL (PRIMARY) HYPERTENSION (5) Diabetes mellitus Assessment/Plan: -on Novolog sliding scale -BGM -endocrine consult Code(s): E11.9 - TYPE 2 DIABETES MELLITUS WITHOUT COMPLICATIONS Assessment/Plan see problem list Physical therapy start diabetic diet- observe for any swallowing difficulty
[2017-06-27] MEDS ORDERED: HALOPERIDOL LACTATE 5 MG/ML IM ONE (22:56)
[2017-06-28] MEDS ORDERED: PT OWN MED DRAWER 7, Y5N ONE ×3 (02:22→17:12)
[2017-06-28] MEDS: ACYCLOVIR INJECTION 1,000 MG in DEXTROSE 5%-WATER - 250 ML IVPB SCH ×3 (02:54→17:14)
[2017-06-28] MEDS: SODIUM CHLORIDE 0.9%/KCL 20 MEQ/1,000 ML INFUS.BAG IV SCH ×4 (02:54→20:29)
[2017-06-28] MEDS: HALOPERIDOL LACTATE 5 MG/ML IVPUSH PRN ×3 (03:26→20:30)
[2017-06-28] MEDS: INSULIN SLIDING SCALE (NOVOLOG) 1 VIAL SQ SCH ×4 (06:45→21:08)
[2017-06-28] MEDS: CEFTRIAXONE IN IS-OSM DEXTROSE 2 GM/50 ML BAG IVPB SCH (06:45)
[2017-06-28 07:01] LABS: HEMATOCRIT 45.9 % (35.4-49); HEMOGLOBIN 15.9 GM/dL (11.7-16.9); LYMPH % 24.5 % (8-40); MCH 28.2 pg (25.7-33.7); MCHC 34.6 g/dl (32.0-35.9); MEAN CELL VOLUME 81.3 fl (80-96); MEAN PLT VOLUME 8.2 fl (7.5-11.1); MONO % 11.9 % (3.8-10.2); NEUT % 59.6 % (42.8-82.8); PLATELET COUNT 186 K/MM3 (134-434); RBC 5.65 M/mm3 (4.00-5.60); RDW 12.7 % (11.9-15.9); WHITE BLOOD COUNT 8.4 K/mm3 (4.0-10.0)
[2017-06-28 07:33] LABS: ANION GAP 8 (8-16); BLOOD UREA NITROGEN 9 mg/dL (7-18); CALCIUM 8.9 mg/dL (8.5-10.1); CHLORIDE 104 mmol/L (98-107); CO2 24 mmol/L (21-32); CREATININE 0.8 mg/dL (0.7-1.3); GLUCOSE,RANDOM 135 mg/dL (74-106); POTASSIUM 3.5 mmol/L (3.5-5.1); SODIUM 136 mmol/L (136-145)
--- NOTE | 2017-06-28 09:21 | PN ---
Progress Note, Physician Chief Complaint: ID Alert saying he wants to go home NAD and able to answer questions appropriately Ceftraixone and Acyclovir - Current Medication List Current Medications: Active Medications Acetaminophen (Tylenol -) 650 mg PO Q4H PRN PRN Reason: FEVER OR PAIN Haloperidol (Haldol Injection (Fast Acting) -) 1 mg IVPUSH Q4H PRN PRN Reason: AGITATION Last Admin: 06/28/17 07:49 Dose: 1 mg Acyclovir 1,000 mg/ Dextrose 270 mls @ 270 mls/hr IVPB Q8H-IV MARK Last Admin: 06/28/17 02:54 Dose: 270 mls/hr CEFTRIAXONE IN IS-OSM DEXTROSE (Ceftriaxone 2 Gm-D5w Bag) 2 gm in 50 mls @ 100 mls/hr IVPB Q12H MARK Last Admin: 06/28/17 06:45 Dose: 100 mls/hr Potassium Chloride/Sodium Chloride (Ns+20 Meq Kcl -) 20 meq in 1,000 mls @ 125 mls/hr IV Q8H MARK Last Admin: 06/28/17 02:54 Dose: 125 mls/hr Ibuprofen (Caldolor Injection -) 600 mg IVPB Q6H PRN PRN Reason: FEVER Last Admin: 06/27/17 03:08 Dose: 600 mg Insulin Aspart (Novolog Vial Sliding Scale -) 1 vial SQ ACHS MARK PRN Reason: Protocol Last Admin: 06/28/17 06:45 Dose: Not Given - Objective Vital Signs: Vital Signs Temperature 98.3 F 06/28/17 05:00 Pulse Rate 107 H 06/28/17 05:00 Respiratory Rate 20 06/28/17 05:00 Blood Pressure 130/106 06/28/17 05:00 O2 Sat by Pulse Oximetry (%) 94 L 06/27/17 22:00 Constitutional: Yes: Well Nourished HENT: Yes: WNL, Atraumatic Neck: Yes: WNL, Supple Cardiovascular: Yes: WNL, Regular Rate and Rhythm, S1, S2 Respiratory: Yes: WNL, Regular, CTA Bilaterally Gastrointestinal: Yes: WNL, Normal Bowel Sounds, Soft Edema: No Neurological: Yes: WNL, Alert, Oriented, Other (agitated) Labs: CBC, BMP 06/28/17 06:30 01/01/18 06:30 INR, PTT INR 1.01 (0.82-1.09) 06/25/17 14:02 Problem List - Problems (1) Altered mental state Code(s): R41.82 - ALTERED MENTAL STATUS, UNSPECIFIED Qualifiers: Altered mental status type: unspecified Qualified Code(s): R41.82 - Altered mental status, unspecified (2) Encephalitis Code(s): G04.90 - ENCEPHALITIS AND ENCEPHALOMYELITIS, UNSPECIFIED Assessment/Plan Microbiology 06/25/17 22:25 Cerebral Spinal Fluid - Lumbar Puncture Gram Stain - Final 06/25/17 20:54 Nasopharyngeal Swab Influenza Types A,B Antigen (BENSON) - Final 06/25/17 20:54 Nasopharyngeal Swab - Final 06/25/17 14:02 Urine - Urine Clean Catch Urine Culture - Final NO GROWTH OBTAINED 06/25/17 22:25 Cerebral Spinal Fluid - Lumbar Puncture CSF Culture - Preliminary NO GROWTH OBTAINED AFTER 24 HOURS INCUBATION, REINCUBATED. 06/25/17 13:40 Blood - Peripheral Venous Blood Culture - Preliminary NO GROWTH OBTAINED AFTER 48 HOURS, INCUBATION TO CONTINUE FOR 3 DAYS. 06/25/17 13:40 Blood - Peripheral Venous Blood Culture - Preliminary NO GROWTH OBTAINED AFTER 48 HOURS, INCUBATION TO CONTINUE FOR 3 DAYS. Laboratory Tests 06/25/17 06/26/17 06/26/17 22:27 10:30 13:45 WBC Hgb Hct Plt Count Neutrophils % Lymphocytes % Monocytes % Eosinophils % Random Glucose Total Bilirubin AST ALT Alkaline Phosphatase CSF WBC 1 CSF RBC 3 CSF Glucose 73 CSF Total Protein 65 H Lyme IgG Ab Interpret Lyme IgM Ab Index HSV I DNA Quant (PCR) Pending HSV II DNA Quant (PCR) Pending HIV 1&2 Antibody Screen Negative HIV P24 Antigen Negative 06/26/17 06/27/17 06/28/17 14:00 06:05 06:30 WBC Hgb Hct Plt Count Neutrophils % Lymphocytes % Monocytes % Eosinophils % Random Glucose 135 H Total Bilirubin 1.8 H AST 15 D ALT 28 Alkaline Phosphatase 92 CSF WBC CSF RBC CSF Glucose CSF Total Protein Lyme IgG Ab Interpret Pending Lyme IgM Ab Index Pending HSV I DNA Quant (PCR) HSV II DNA Quant (PCR) HIV 1&2 Antibody Screen HIV P24 Antigen 06/28/17 06:30 WBC 8.4 Hgb 15.9 Hct 45.9 Plt Count 186 Neutrophils % 59.6 Lymphocytes % 24.5 Monocytes % 11.9 H Eosinophils % 3.0 Random Glucose Total Bilirubin AST ALT Alkaline Phosphatase CSF WBC CSF RBC CSF Glucose CSF Total Protein Lyme IgG Ab Interpret Lyme IgM Ab Index HSV I DNA Quant (PCR) HSV II DNA Quant (PCR) HIV 1&2 Antibody Screen HIV P24 Antigen Assessment Working diagnosis encephalitis HSV would be most likely. [place] unlikely Other viruses still possible Plan MRI with gadololinium Can reduce Ceftriaxone doses to daily until we get Lyme serology though I do not think his clinical picture consistent with Lyme Continue Zovirax HSV serolgy PCR will take time Efren LYLES
[2017-06-28] MEDS ORDERED: CEFTRIAXONE IN IS-OSM DEXTROSE 2 GM/50 ML BAG IVPB SCH (10:00)
[2017-06-28] MEDS ORDERED: HEMOQUE TEST 1 EACH EACH ONE (11:16)
--- NOTE | 2017-06-28 11:21 | PN ---
Progress Note (short form) - Note Progress Note: Mental status continues to improve. Less, but still slightly agitated. Wants to go home. Intake & Output 06/25/17 06/26/17 06/27/17 06/28/17 23:59 23:59 23:59 23:59 Intake Total 100 3250 1200 1550 Output Total 3 Balance 100 3247 1200 1550 Weight 221 lb 6.4 oz 215 lb 9.6 oz 211 lb Last Vital Signs Temp Pulse Resp BP Pulse Ox 98.3 F 107 H 20 130/106 94 L 06/28/17 05:00 06/28/17 05:00 06/28/17 05:00 06/28/17 05:00 06/27/17 22:00 Active Medications Acetaminophen (Tylenol -) 650 mg PO Q4H PRN PRN Reason: FEVER OR PAIN Haloperidol (Haldol Injection (Fast Acting) -) 1 mg IVPUSH Q4H PRN PRN Reason: AGITATION Last Admin: 06/28/17 07:49 Dose: 1 mg Acyclovir 1,000 mg/ Dextrose 270 mls @ 270 mls/hr IVPB Q8H-IV MARK Last Admin: 06/28/17 02:54 Dose: 270 mls/hr Potassium Chloride/Sodium Chloride (Ns+20 Meq Kcl -) 20 meq in 1,000 mls @ 125 mls/hr IV Q8H MARK Last Admin: 06/28/17 02:54 Dose: 125 mls/hr CEFTRIAXONE IN IS-OSM DEXTROSE (Ceftriaxone 2 Gm-D5w Bag) 2 gm in 50 mls @ 100 mls/hr IVPB DAILY MARK Ibuprofen (Caldolor Injection -) 600 mg IVPB Q6H PRN PRN Reason: FEVER Last Admin: 06/27/17 03:08 Dose: 600 mg Insulin Aspart (Novolog Vial Sliding Scale -) 1 vial SQ ACHS MARK PRN Reason: Protocol Last Admin: 06/28/17 06:45 Dose: Not Given Constitutional: Yes: More oriented, Less agitated / confused Eyes: Yes: Conjunctiva Clear, EOM Intact HENT: Yes: Atraumatic, Normocephalic Neck: Yes: Supple, Trachea Midline Cardiovascular: Yes: Tachycardia Respiratory: Yes: CTA Bilaterally ...Inspection: Yes: WNL ...Clubbing: No Gastrointestinal: Yes: Normal Bowel Sounds, Soft Musculoskeletal: Yes: WNL Extremities: Yes: WNL Edema: No Peripheral Pulses WNL: Yes Integumentary: Yes: WNL Neurological: Yes: Confusion, Other (agitation / confusion ). No: Asterixis, Facial Droop, Seizure, Tremors Labs: Laboratory Results - last 24 hr 06/27/17 06/28/17 06/28/17 22:14 06:30 06:30 WBC 8.4 RBC 5.65 H Hgb 15.9 Hct 45.9 MCV 81.3 MCH 28.2 MCHC 34.6 RDW 12.7 Plt Count 186 MPV 8.2 Neutrophils % 59.6 Lymphocytes % 24.5 Monocytes % 11.9 H Eosinophils % 3.0 Basophils % 1.0 Sodium 136 Potassium 3.5 Chloride 104 Carbon Dioxide 24 Anion Gap 8 BUN 9 Creatinine 0.8 POC Glucometer [phone] Random Glucose 135 H Hemoglobin A1c % Calcium 8.9 06/28/17 06:30 WBC RBC Hgb Hct MCV MCH MCHC RDW Plt Count MPV Neutrophils % Lymphocytes % Monocytes % Eosinophils % Basophils % Sodium Potassium Chloride Carbon Dioxide Anion Gap BUN Creatinine POC Glucometer Random Glucose Hemoglobin A1c % 6.8 H D Calcium Problem List - Problems (1) Encephalitis Code(s): G04.90 - ENCEPHALITIS AND ENCEPHALOMYELITIS, UNSPECIFIED (2) Altered mental state Code(s): R41.82 - ALTERED MENTAL STATUS, UNSPECIFIED Qualifiers: Altered mental status type: unspecified Qualified Code(s): R41.82 - Altered mental status, unspecified Assessment/Plan Fall precautions BZ for agitation Follow final cultures IVF ABX / Anti-viral per ID Aspiration precautions Dr Hoffman Problem List - Problems (1) Encephalitis Code(s): G04.90 - ENCEPHALITIS AND ENCEPHALOMYELITIS, UNSPECIFIED (2) Altered mental state Code(s): R41.82 - ALTERED MENTAL STATUS, UNSPECIFIED Qualifiers: Altered mental status type: unspecified Qualified Code(s): R41.82 - Altered mental status, unspecified
--- NOTE | 2017-06-28 13:03 | PN ---
Progress Note, Physician - Current Medication List Current Medications: Active Medications Acetaminophen (Tylenol -) 650 mg PO Q4H PRN PRN Reason: FEVER OR PAIN Haloperidol (Haldol Injection (Fast Acting) -) 1 mg IVPUSH Q4H PRN PRN Reason: AGITATION Last Admin: 06/28/17 07:49 Dose: 1 mg Acyclovir 1,000 mg/ Dextrose 270 mls @ 270 mls/hr IVPB Q8H-IV MARK Last Admin: 06/28/17 10:59 Dose: 270 mls/hr Potassium Chloride/Sodium Chloride (Ns+20 Meq Kcl -) 20 meq in 1,000 mls @ 125 mls/hr IV Q8H MARK Last Admin: 06/28/17 11:22 Dose: Not Given CEFTRIAXONE IN IS-OSM DEXTROSE (Ceftriaxone 2 Gm-D5w Bag) 2 gm in 50 mls @ 100 mls/hr IVPB DAILY MARK Ibuprofen (Caldolor Injection -) 600 mg IVPB Q6H PRN PRN Reason: FEVER Last Admin: 06/27/17 03:08 Dose: 600 mg Insulin Aspart (Novolog Vial Sliding Scale -) 1 vial SQ ACHS MARK PRN Reason: Protocol Last Admin: 06/28/17 11:22 Dose: Not Given - Objective Vital Signs: Vital Signs Temperature 98.3 F 06/28/17 05:00 Pulse Rate 107 H 06/28/17 05:00 Respiratory Rate 20 06/28/17 05:00 Blood Pressure 130/106 06/28/17 05:00 O2 Sat by Pulse Oximetry (%) 94 L 06/27/17 22:00 Labs: CBC, BMP 06/28/17 06:30 06/28/17 06:30 INR, PTT INR 1.01 (0.82-1.09) 06/25/17 14:02 Assessment/Plan - Problems (1) Sepsis Assessment/Plan: WBC decreased -still febrile Code(s): A41.9 - SEPSIS, UNSPECIFIED ORGANISM Qualifiers: Sepsis type: sepsis due to unspecified organism Qualified Code(s): A41.9 - Sepsis, unspecified organism (2) Altered mental state Assessment/Plan: -On Abx and [id number] -first MRI/CT head unremarkable -repeat CT head done, results unchanged -Neurology and ID on board -CSF culture pending -CSF protein mildly elevated -labs in AM -Avoid benzodiazepines for agitation, may cause more confusion -Haldol 2 mg IVP Q4H PRN -Neuro check Q4H Code(s): R41.82 - ALTERED MENTAL STATUS, UNSPECIFIED Qualifiers: Altered mental status type: unspecified Qualified Code(s): R41.82 - Altered mental status, unspecified (3) Encephalitis -As Above Code(s): G04.90 - ENCEPHALITIS AND ENCEPHALOMYELITIS, UNSPECIFIED (4) HTN (hypertension) Assessment/Plan: secondary to agitation Code(s): I10 - ESSENTIAL (PRIMARY) HYPERTENSION (5) Diabetes mellitus Assessment/Plan: -on Novolog sliding scale -BGM -endocrine consult Code(s): E11.9 - TYPE 2 DIABETES MELLITUS WITHOUT COMPLICATIONS
--- NOTE | 2017-06-28 20:37 | PN ---
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 He denies any headache , visual symptoms , numbness or weakness ; no neck pain. Tone appears increased mildly in both arms+ postural, fine tremors in both hands. His spinal tap was inconclusive ; WBC 1 , RBC 3 Pr 65 mildly elevated. Per family he was in [facility] 2 weeks ago and was there for hunting in the past Nov as well . -Lyme titers/HSV PCR pending. Improved condition, would obtain EEG if possible for ancillary signs of herpes encephalitis. Babesia titers(will ask ID whether to send or not). . - Current Medication List Current Medications: Active Medications Acetaminophen (Tylenol -) 650 mg PO Q4H PRN PRN Reason: FEVER OR PAIN Haloperidol (Haldol Injection (Fast Acting) -) 1 mg IVPUSH Q4H PRN PRN Reason: AGITATION Last Admin: 06/28/17 20:30 Dose: 1 mg Acyclovir 1,000 mg/ Dextrose 270 mls @ 270 mls/hr IVPB Q8H-IV MARK Last Admin: 06/28/17 17:14 Dose: 270 mls/hr Potassium Chloride/Sodium Chloride (Ns+20 Meq Kcl -) 20 meq in 1,000 mls @ 125 mls/hr IV Q8H MARK Last Admin: 06/28/17 20:29 Dose: 125 mls/hr CEFTRIAXONE IN IS-OSM DEXTROSE (Ceftriaxone 2 Gm-D5w Bag) 2 gm in 50 mls @ 100 mls/hr IVPB DAILY MARK Ibuprofen (Caldolor Injection -) 600 mg IVPB Q6H PRN PRN Reason: FEVER Last Admin: 06/27/17 03:08 Dose: 600 mg Insulin Aspart (Novolog Vial Sliding Scale -) 1 vial SQ ACHS MARK PRN Reason: Protocol Last Admin: 06/28/17 16:51 Dose: Not Given - Objective Vital Signs: Vital Signs Temperature 98.4 F 06/28/17 18:41 Pulse Rate 130 H 06/28/17 19:40 Respiratory Rate 18 06/28/17 19:40 Blood Pressure 134/89 06/28/17 19:40 O2 Sat by Pulse Oximetry (%) 94 L 06/28/17 09:00 Labs: CBC, BMP 06/28/17 06:30 06/28/17 06:30 INR, PTT INR 1.01 (0.82-1.09) 06/25/17 14:02
[2017-06-29] MEDS ORDERED: PT OWN MED DRAWER 7, Y5N ONE ×3 (01:59→21:36)
[2017-06-29] MEDS: ACYCLOVIR INJECTION 1,000 MG in DEXTROSE 5%-WATER - 250 ML IVPB SCH ×3 (02:08→17:27)
[2017-06-29] MEDS ORDERED: LORazepam 2 MG/ML SDV VIAL IM ONE (02:59)
[2017-06-29] MEDS ORDERED: LORazepam 2 MG/ML SDV VIAL ONE ×2 (03:02→21:35)
[2017-06-29] MEDS: SODIUM CHLORIDE 0.9%/KCL 20 MEQ/1,000 ML INFUS.BAG IV SCH ×4 (03:50→21:46)
[2017-06-29] MEDS: INSULIN SLIDING SCALE (NOVOLOG) 1 VIAL SQ SCH ×4 (07:00→21:55)
--- NOTE | 2017-06-29 07:59 | PN ---
Progress Note (short form) - Note Progress Note: F/U today; he has periods of luceny though gets agitated, last night urinated on floor and tried to get out of bed--+restless. 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 He denies any headache , visual symptoms , numbness or weakness; no neck pain. Tone appears increased mildly in both arms+ postural, fine tremors in both hands. His spinal tap was inconclusive ; WBC 1 , RBC 3 Pr 65 mildly elevated. Per family he was in [facility] 2 weeks ago and was there for hunting in the past Nov as well . -Lyme titers/HSV PCR pending. no nuchal rigidity, Vital Signs Temperature 99 F 06/29/17 06:53 Pulse Rate 121 H 06/29/17 06:53 Respiratory Rate 21 06/29/17 06:53 Blood Pressure 138/91 06/28/17 23:00 O2 Sat by Pulse Oximetry (%) 94 L 06/28/17 09:00 . CBCD WBC 8.4 K/mm3 (4.0-10.0) 06/28/17 06:30 RBC 5.65 M/mm3 (4.00-5.60) H 06/28/17 06:30 Hgb 15.9 GM/dL (11.7-16.9) 06/28/17 06:30 Hct 45.9 % (35.4-49) 06/28/17 06:30 MCV 81.3 fl (80-96) 06/28/17 06:30 MCHC 34.6 g/dl (32.0-35.9) 06/28/17 06:30 RDW 12.7 % (11.9-15.9) 06/28/17 06:30 Plt Count 186 K/MM3 (134-434) 06/28/17 06:30 MPV 8.2 fl (7.5-11.1) 06/28/17 06:30 CMP Sodium 136 mmol/L (136-145) 06/28/17 06:30 Potassium 3.5 mmol/L (3.5-5.1) 06/28/17 06:30 Chloride 104 mmol/L (98-107) 06/28/17 06:30 Carbon Dioxide 24 mmol/L (21-32) 06/28/17 06:30 Anion Gap 8 (8-16) 06/28/17 06:30 BUN 9 mg/dL (7-18) 06/28/17 06:30 Creatinine 0.8 mg/dL (0.7-1.3) 06/28/17 06:30 Creat Clearance w eGFR > 60 (>60) 06/27/17 06:05 Calcium 8.9 mg/dL (8.5-10.1) 06/28/17 06:30 Total Bilirubin 1.8 mg/dL (0.2-1.0) H 06/27/17 06:05 AST 15 U/L (15-37) D 06/27/17 06:05 ALT 28 U/L (12-78) 06/27/17 06:05 Alkaline Phosphatase 92 U/L (45-117) 06/27/17 06:05 Total Protein 7.6 g/dl (6.4-8.2) 06/27/17 06:05 Albumin 3.9 g/dl (3.4-5.0) 06/27/17 06:05 - Current Medication List Current Medications: Active Medications Acetaminophen (Tylenol -) 650 mg PO Q4H PRN PRN Reason: FEVER OR PAIN Haloperidol (Haldol Injection (Fast Acting) -) 1 mg IVPUSH Q4H PRN PRN Reason: AGITATION Last Admin: 06/28/17 20:30 Dose: 1 mg Acyclovir 1,000 mg/ Dextrose 270 mls @ 270 mls/hr IVPB Q8H-IV MARK Last Admin: 06/28/17 17:14 Dose: 270 mls/hr Potassium Chloride/Sodium Chloride (Ns+20 Meq Kcl -) 20 meq in 1,000 mls @ 125 mls/hr IV Q8H MARK Last Admin: 06/28/17 20:29 Dose: 125 mls/hr CEFTRIAXONE IN IS-OSM DEXTROSE (Ceftriaxone 2 Gm-D5w Bag) 2 gm in 50 mls @ 100 mls/hr IVPB DAILY MARK Ibuprofen (Caldolor Injection -) 600 mg IVPB Q6H PRN PRN Reason: FEVER Last Admin: 06/27/17 03:08 Dose: 600 mg Insulin Aspart (Novolog Vial Sliding Scale -) 1 vial SQ ACHS MARK PRN Reason: Protocol Last Admin: 06/28/17 16:51 Dose: Not Given AP : suspect encephalitis viral vs autoimmune FU HSV titers, lyme, babesia check MARISOL, TSH, ESR , antithyroid peroxidase AB ANTI NMDA/VGKCAbs, ANTI MA ideally needs reapeat MRI and may need retap EPS sx may be form [facility] Farfan
--- NOTE | 2017-06-29 08:31 | PN ---
Progress Note (short form) - Note Progress Note: more alert aware he is in the hospital conversant tremulous Vital Signs Period Temp Pulse Resp BP Sys/Allison Pulse Ox Last 24 Hr 98.3 F-99 F 103-130 18-30 119-138/89-91 94 cor-rrr llungs clear abd soft,nt ext no edema CBC, BMP 06/28/17 06:30 06/28/17 06:30 Microbiology 06/25/17 13:40 Blood - Peripheral Venous Blood Culture - Preliminary NO GROWTH OBTAINED AFTER 72 HOURS, INCUBATION TO CONTINUE FOR 2 DAYS. 06/25/17 13:40 Blood - Peripheral Venous Blood Culture - Preliminary NO GROWTH OBTAINED AFTER 72 HOURS, INCUBATION TO CONTINUE FOR 2 DAYS. 06/25/17 22:25 Cerebral Spinal Fluid - Lumbar Puncture Gram Stain - Final 06/25/17 22:25 Cerebral Spinal Fluid - Lumbar Puncture CSF Culture - Final NO GROWTH AFTER 48 HOURS INCUBATION 06/25/17 14:02 Urine - Urine Clean Catch Urine Culture - Final NO GROWTH OBTAINED 06/25/17 20:54 Nasopharyngeal Swab Influenza Types A,B Antigen (BENSON) - Final 06/25/17 20:54 Nasopharyngeal Swab - Final Current Medications Generic Name Dose Route Start Last Admin Trade Name Freq PRN Reason Stop Dose Admin Acetaminophen 650 mg 06/25/17 20:08 Tylenol - PO Q4H PRN FEVER OR PAIN Haloperidol 1 mg 06/27/17 21:35 06/28/17 20:30 Haldol Injection (Fast Acting) - IVPUSH 1 mg Q4H PRN Administration AGITATION Acyclovir 1,000 mg/ Dextrose 270 mls @ 270 mls/hr 06/26/17 04:00 06/29/17 02: 08 IVPB 270 mls/hr Q8H-IV MARK Administration Potassium Chloride/Sodium Chloride 20 meq in 1,000 mls @ 125 mls/hr 06/27/17 11:00 06/29/17 03:50 Ns+20 Meq Kcl - IV Not Given Q8H MARK CEFTRIAXONE IN IS-OSM DEXTROSE 2 gm in 50 mls @ 100 mls/hr 06/29/17 10:00 Ceftriaxone 2 Gm-D5w Bag IVPB DAILY MARK Ibuprofen 600 mg 06/26/17 00:39 06/27/17 03:08 Caldolor Injection - IVPB 600 mg Q6H PRN Administration FEVER Influenza Virus Vaccine Quadrival 60 mcg 06/29/17 10:00 Flulaval Quad [id number] IM 06/29/17 10:01 .ONCE ONE Insulin Aspart 1 vial 06/26/17 22:09 06/28/17 21:08 Novolog Vial Sliding Scale - SQ Not Given ACHS [facility] Protocol a/p probable encephalitis-?eeg, f/u serologies f/u hsv pcr will send mycoplasma serology continue rocephin/acyclovir add doxycycline Problem List - Problems (1) Encephalitis Code(s): G04.90 - ENCEPHALITIS AND ENCEPHALOMYELITIS, UNSPECIFIED
[2017-06-29] MEDS: DOXYCYCLINE INJECTION 100 MG in DEXTROSE 5%-WATER - 100 ML IVPB SCH (09:58)
[2017-06-29] MEDS ORDERED: CEFTRIAXONE IN IS-OSM DEXTROSE 2 GM/50 ML BAG IVPB SCH (10:00)
[2017-06-29] MEDS ORDERED: FLU VACCINE QUAD 60 MCG/0.5 ML (MDV 17-18) IM ONE (10:00)
--- NOTE | 2017-06-29 14:08 | PN ---
Progress Note, Physician Chief Complaint: MORE ALERT AND AWAKE FAMILY BEDSIDE DENIES FEVERS OR CHILLS - Current Medication List Current Medications: Active Medications Acetaminophen (Tylenol -) 650 mg PO Q4H PRN PRN Reason: FEVER OR PAIN Acyclovir 1,000 mg/ Dextrose 270 mls @ 270 mls/hr IVPB Q8H-IV MARK Last Admin: 06/29/17 09:59 Dose: 270 mls/hr Potassium Chloride/Sodium Chloride (Ns+20 Meq Kcl -) 20 meq in 1,000 mls @ 125 mls/hr IV Q8H [facility] Last Admin: 06/29/17 03:50 Dose: Not Given CEFTRIAXONE IN IS-OSM DEXTROSE (Ceftriaxone 2 Gm-D5w Bag) 2 gm in 50 mls @ 100 mls/hr IVPB DAILY [facility] Last Admin: 06/29/17 12:21 Dose: 100 mls/hr Doxycycline Hyclate 100 mg/ (Dextrose) 100 mls @ 100 mls/hr IVPB BID [facility] Last Admin: 06/29/17 09:58 Dose: 100 mls/hr Ibuprofen (Caldolor Injection -) 600 mg IVPB Q6H PRN PRN Reason: FEVER Last Admin: 06/27/17 03:08 Dose: 600 mg Insulin Aspart (Novolog Vial Sliding Scale -) 1 vial SQ ACHS MARK PRN Reason: Protocol Last Admin: 06/29/17 11:47 Dose: Not Given Lorazepam (Ativan Injection -) 1 mg IVPUSH Q6H PRN PRN Reason: ANXIETY - Objective Vital Signs: Vital Signs Temperature 99 F 06/29/17 06:53 Pulse Rate 121 H 06/29/17 06:53 Respiratory Rate 21 06/29/17 06:53 Blood Pressure 138/91 06/28/17 23:00 O2 Sat by Pulse Oximetry (%) 94 L 06/28/17 09:00 Constitutional: Yes: Mild Distress Eyes: Yes: WNL HENT: Yes: WNL Neck: Yes: WNL Cardiovascular: Yes: Tachycardia Respiratory: Yes: WNL, On Nasal O2 Gastrointestinal: Yes: WNL Genitourinary: Yes: WNL Musculoskeletal: Yes: Muscle Weakness Extremities: Yes: WNL Edema: No Integumentary: Yes: WNL Wound/Incision: Yes: Clean/Dry Neurological: Yes: Other ...Motor Strength: LLE, RLE Psychiatric: Yes: Agitated, Other Labs: CBC, BMP 06/28/17 06:30 06/28/17 06:30 INR, PTT INR 1.01 (0.82-1.09) 06/25/17 14:02 Problem List - Problems (1) Altered mental state Code(s): R41.82 - ALTERED MENTAL STATUS, UNSPECIFIED Qualifiers: Altered mental status type: unspecified Qualified Code(s): R41.82 - Altered mental status, unspecified (2) Diabetes mellitus Code(s): E11.9 - TYPE 2 DIABETES MELLITUS WITHOUT COMPLICATIONS Qualifiers: Diabetes mellitus type: type 2 Diabetes mellitus complication status: with unspecified complications (3) Encephalitis Code(s): G04.90 - ENCEPHALITIS AND ENCEPHALOMYELITIS, UNSPECIFIED (4) HTN (hypertension) Code(s): I10 - ESSENTIAL (PRIMARY) HYPERTENSION Qualifiers: Hypertension type: essential hypertension Qualified Code(s): I10 - Essential (primary) hypertension (5) Sepsis Code(s): A41.9 - SEPSIS, UNSPECIFIED ORGANISM Qualifiers: Sepsis type: sepsis due to unspecified organism Qualified Code(s): A41.9 - Sepsis, unspecified organism (6) Diabetes mellitus, new onset Code(s): E11.9 - TYPE 2 DIABETES MELLITUS WITHOUT COMPLICATIONS Assessment/Plan IV ABX AND ACYCLOVIR ID AND NEUR EVAL APPRECIATED LABS PENDING DVT PROPHYLAXIS USE ATIVAN NOT HALDOL FOR AGITATION
--- NOTE | 2017-06-29 14:09 | PN ---
Progress Note (short form) - Note Progress Note: FAMILY WILL STAY BEDSIDE FOR ASSISTING HIS AGITATION AT NIGHT Problem List - Problems (1) Altered mental state Code(s): R41.82 - ALTERED MENTAL STATUS, UNSPECIFIED Qualifiers: Altered mental status type: unspecified Qualified Code(s): R41.82 - Altered mental status, unspecified (2) Diabetes mellitus Code(s): E11.9 - TYPE 2 DIABETES MELLITUS WITHOUT COMPLICATIONS Qualifiers: Diabetes mellitus type: type 2 Diabetes mellitus complication status: with unspecified complications (3) Encephalitis Code(s): G04.90 - ENCEPHALITIS AND ENCEPHALOMYELITIS, UNSPECIFIED (4) HTN (hypertension) Code(s): I10 - ESSENTIAL (PRIMARY) HYPERTENSION Qualifiers: Hypertension type: essential hypertension Qualified Code(s): I10 - Essential (primary) hypertension (5) Sepsis Code(s): A41.9 - SEPSIS, UNSPECIFIED ORGANISM Qualifiers: Sepsis type: sepsis due to unspecified organism Qualified Code(s): A41.9 - Sepsis, unspecified organism (6) Diabetes mellitus, new onset Code(s): E11.9 - TYPE 2 DIABETES MELLITUS WITHOUT COMPLICATIONS
[2017-06-29] MEDS: IBUPROFEN 800 MG/8 ML IJ IVPB PRN (19:39)
[2017-06-30] MEDS ORDERED: PT OWN MED DRAWER 7, Y5N ONE ×3 (02:19→20:35)
[2017-06-30] MEDS ORDERED: LORazepam 2 MG/ML SDV VIAL ONE ×2 (02:20→18:44)
[2017-06-30] MEDS: DOXYCYCLINE INJECTION 100 MG in DEXTROSE 5%-WATER - 100 ML IVPB SCH ×3 (02:25→21:31)
[2017-06-30] MEDS: ACYCLOVIR INJECTION 1,000 MG in DEXTROSE 5%-WATER - 250 ML IVPB SCH ×3 (03:04→18:42)
[2017-06-30] MEDS: SODIUM CHLORIDE 0.9%/KCL 20 MEQ/1,000 ML INFUS.BAG IV SCH ×2 (07:06→17:16)
[2017-06-30] MEDS: INSULIN SLIDING SCALE (NOVOLOG) 1 VIAL SQ SCH ×3 (07:07→23:15)
--- NOTE | 2017-06-30 08:32 | PN ---
Progress Note (short form) - Note Progress Note: more alert aware he is in the hospital conversant remains tremulous no fevers Vital Signs Period Temp Pulse Resp BP Sys/Allison Pulse Ox Last 24 Hr 97.8 F-99.2 F 79-108 18-23 112-156/59-93 93-96 cor-rrr lungs clear abd soft,nt ext no edema CBC, BMP 06/28/17 06:30 06/28/17 06:30 Microbiology 06/25/17 13:40 Blood - Peripheral Venous Blood Culture - Preliminary NO GROWTH OBTAINED AFTER 96 HOURS, INCUBATION TO CONTINUE FOR 1 DAYS. 06/25/17 13:40 Blood - Peripheral Venous Blood Culture - Preliminary NO GROWTH OBTAINED AFTER 96 HOURS, INCUBATION TO CONTINUE FOR 1 DAYS. 06/25/17 22:25 Cerebral Spinal Fluid - Lumbar Puncture Gram Stain - Final 06/25/17 22:25 Cerebral Spinal Fluid - Lumbar Puncture CSF Culture - Final NO GROWTH AFTER 48 HOURS INCUBATION 06/25/17 14:02 Urine - Urine Clean Catch Urine Culture - Final NO GROWTH OBTAINED 06/25/17 20:54 Nasopharyngeal Swab Influenza Types A,B Antigen (BENSON) - Final 06/25/17 20:54 Nasopharyngeal Swab - Final hiv negative rpr negative lyme serology negative HSV PCR pending Current Medications Acetaminophen (Tylenol -) 650 mg PO Q4H PRN PRN Reason: FEVER OR PAIN Last Admin: 06/29/17 19:38 Dose: 650 mg Acyclovir 1,000 mg/ Dextrose 270 mls @ 270 mls/hr IVPB Q8H-IV [facility] Last Admin: 06/30/17 03:04 Dose: 270 mls/hr Potassium Chloride/Sodium Chloride (Ns+20 Meq Kcl -) 20 meq in 1,000 mls @ 125 mls/hr IV Q8H [facility] Last Admin: 06/30/17 07:06 Dose: Not Given CEFTRIAXONE IN IS-OSM DEXTROSE (Ceftriaxone 2 Gm-D5w Bag) 2 gm in 50 mls @ 100 mls/hr IVPB DAILY [facility] Last Admin: 06/29/17 12:21 Dose: 100 mls/hr Doxycycline Hyclate 100 mg/ (Dextrose) 100 mls @ 100 mls/hr IVPB BID [facility] Last Admin: 06/30/17 02:25 Dose: 100 mls/hr Ibuprofen (Caldolor Injection -) 600 mg IVPB Q6H PRN PRN Reason: FEVER Last Admin: 06/29/17 19:39 Dose: 600 mg Insulin Aspart (Novolog Vial Sliding Scale -) 1 vial SQ ACHS MARK PRN Reason: Protocol Last Admin: 06/30/17 07:07 Dose: Not Given Lorazepam (Ativan Injection -) 1 mg IVPUSH Q6H PRN PRN Reason: ANXIETY Last Admin: 06/30/17 02:26 Dose: 1 mg check labs a/p probable encephalitis-?eeg, f/u serologies f/u hsv pcr will send mycoplasma serology awaiting hsv encephalitis panel spoke to lab will send testing for powassan virus to [facility] d/c ceftriaxone continue acyclovir continue doxycycline Problem List - Problems (1) Encephalitis Code(s): G04.90 - ENCEPHALITIS AND ENCEPHALOMYELITIS, UNSPECIFIED
--- NOTE | 2017-06-30 09:27 | PN ---
Progress Note (short form) - Note Progress Note: 52 year old man who was brought in to the ED because of agitation and confusion- -subacute over one day. Per family member at the bedside, he only has h/o DM , on no medication lately , no h/o psych disorder, no sick contact or recent traveling. HX of hunting in past couple months. F/U today; appears more awake , can conversate , but restless, dysarthric and + cogwheeling and tremulous LYME , HSV (-), EBV + no nuchal rigidity, no LIN -afebrile Vital Signs Temperature 97.8 F 06/30/17 02:00 Pulse Rate 102 H 06/30/17 06:00 Respiratory Rate 18 06/30/17 06:00 Blood Pressure 131/93 06/30/17 06:00 O2 Sat by Pulse Oximetry (%) 96 06/29/17 20:14 . CBCD WBC 8.4 K/mm3 (4.0-10.0) 06/28/17 06:30 RBC 5.65 M/mm3 (4.00-5.60) H 06/28/17 06:30 Hgb 15.9 GM/dL (11.7-16.9) 06/28/17 06:30 Hct 45.9 % (35.4-49) 06/28/17 06:30 MCV 81.3 fl (80-96) 06/28/17 06:30 MCHC 34.6 g/dl (32.0-35.9) 06/28/17 06:30 RDW 12.7 % (11.9-15.9) 06/28/17 06:30 Plt Count 186 K/MM3 (134-434) 06/28/17 06:30 MPV 8.2 fl (7.5-11.1) 06/28/17 06:30 CMP Sodium 136 mmol/L (136-145) 06/28/17 06:30 Potassium 3.5 mmol/L (3.5-5.1) 06/28/17 06:30 Chloride 104 mmol/L (98-107) 06/28/17 06:30 Carbon Dioxide 24 mmol/L (21-32) 06/28/17 06:30 Anion Gap 8 (8-16) 06/28/17 06:30 BUN 9 mg/dL (7-18) 06/28/17 06:30 Creatinine 0.8 mg/dL (0.7-1.3) 06/28/17 06:30 Creat Clearance w eGFR > 60 (>60) 06/27/17 06:05 Calcium 8.9 mg/dL (8.5-10.1) 06/28/17 06:30 Total Bilirubin 1.8 mg/dL (0.2-1.0) H 06/27/17 06:05 AST 15 U/L (15-37) D 06/27/17 06:05 ALT 28 U/L (12-78) 06/27/17 06:05 Alkaline Phosphatase 92 U/L (45-117) 06/27/17 06:05 Total Protein 7.6 g/dl (6.4-8.2) 06/27/17 06:05 Albumin 3.9 g/dl (3.4-5.0) 06/27/17 06:05 - Current Medication List Current Medications: Active Medications Acetaminophen (Tylenol -) 650 mg PO Q4H PRN PRN Reason: FEVER OR PAIN Haloperidol (Haldol Injection (Fast Acting) -) 1 mg IVPUSH Q4H PRN PRN Reason: AGITATION Last Admin: 06/28/17 20:30 Dose: 1 mg Acyclovir 1,000 mg/ Dextrose 270 mls @ 270 mls/hr IVPB Q8H-IV MARK Last Admin: 06/28/17 17:14 Dose: 270 mls/hr Potassium Chloride/Sodium Chloride (Ns+20 Meq Kcl -) 20 meq in 1,000 mls @ 125 mls/hr IV Q8H MARK Last Admin: 06/28/17 20:29 Dose: 125 mls/hr CEFTRIAXONE IN IS-OSM DEXTROSE (Ceftriaxone 2 Gm-D5w Bag) 2 gm in 50 mls @ 100 mls/hr IVPB DAILY MARK Ibuprofen (Caldolor Injection -) 600 mg IVPB Q6H PRN PRN Reason: FEVER Last Admin: 06/27/17 03:08 Dose: 600 mg Insulin Aspart (Novolog Vial Sliding Scale -) 1 vial SQ ACHS MARK PRN Reason: Protocol Last Admin: 06/28/17 16:51 Dose: Not Given AP : 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
[2017-06-30] MEDS ORDERED: LORazepam 1 MG TABLET PO ONE (10:04)
[2017-06-30] MEDS ORDERED: LORazepam 2 MG/ML SDV VIAL IVPUSH ONE ×2 (10:04→10:30)
--- NOTE | 2017-06-30 10:08 | PN ---
Progress Note, Physician Chief Complaint: AWAKE MORE ALERT NO FEVERS APPETITE IMPROVING ASTERIXIS++ - Current Medication List Current Medications: Active Medications Acetaminophen (Tylenol -) 650 mg PO Q4H PRN PRN Reason: FEVER OR PAIN Last Admin: 06/29/17 19:38 Dose: 650 mg Acyclovir 1,000 mg/ Dextrose 270 mls @ 270 mls/hr IVPB Q8H-IV MARK Last Admin: 06/30/17 03:04 Dose: 270 mls/hr Potassium Chloride/Sodium Chloride (Ns+20 Meq Kcl -) 20 meq in 1,000 mls @ 125 mls/hr IV Q8H MARK Last Admin: 06/30/17 07:06 Dose: Not Given CEFTRIAXONE IN IS-OSM DEXTROSE (Ceftriaxone 2 Gm-D5w Bag) 2 gm in 50 mls @ 100 mls/hr IVPB DAILY [facility] Last Admin: 06/29/17 12:21 Dose: 100 mls/hr Doxycycline Hyclate 100 mg/ (Dextrose) 100 mls @ 100 mls/hr IVPB BID [facility] Last Admin: 06/30/17 02:25 Dose: 100 mls/hr Ibuprofen (Caldolor Injection -) 600 mg IVPB Q6H PRN PRN Reason: FEVER Last Admin: 06/29/17 19:39 Dose: 600 mg Insulin Aspart (Novolog Vial Sliding Scale -) 1 vial SQ ACHS MARK PRN Reason: Protocol Last Admin: 06/30/17 07:07 Dose: Not Given Lorazepam (Ativan Injection -) 1 mg IVPUSH Q6H PRN PRN Reason: ANXIETY Last Admin: 06/30/17 02:26 Dose: 1 mg Lorazepam (Ativan -) 1 mg PO ONCE ONE Stop: 06/30/17 10:05 Lorazepam (Ativan Injection -) 2 mg IVPUSH ONCE ONE Stop: 06/30/17 10:05 - Objective Vital Signs: Vital Signs Temperature 97.8 F 06/30/17 02:00 Pulse Rate 102 H 06/30/17 06:00 Respiratory Rate 18 06/30/17 06:00 Blood Pressure 131/93 06/30/17 06:00 O2 Sat by Pulse Oximetry (%) 96 06/29/17 20:14 Constitutional: Yes: Mild Distress Eyes: Yes: WNL HENT: Yes: WNL Neck: Yes: WNL Cardiovascular: Yes: Tachycardia Respiratory: Yes: WNL Gastrointestinal: Yes: WNL Genitourinary: Yes: WNL Musculoskeletal: Yes: Other Extremities: Yes: Other Edema: No Peripheral Pulses WNL: Yes Integumentary: Yes: WNL Wound/Incision: Yes: Clean/Dry Neurological: Yes: Asterixis ...Motor Strength: LUE, RUE Psychiatric: Yes: Agitated, Other Labs: CBC, BMP 06/28/17 06:30 06/28/17 06:30 INR, PTT INR 1.01 (0.82-1.09) 06/25/17 14:02 Problem List - Problems (1) Altered mental state Code(s): R41.82 - ALTERED MENTAL STATUS, UNSPECIFIED Qualifiers: Altered mental status type: unspecified Qualified Code(s): R41.82 - Altered mental status, unspecified (2) Diabetes mellitus Code(s): E11.9 - TYPE 2 DIABETES MELLITUS WITHOUT COMPLICATIONS Qualifiers: Diabetes mellitus type: type 2 Diabetes mellitus complication status: with unspecified complications (3) Encephalitis Code(s): G04.90 - ENCEPHALITIS AND ENCEPHALOMYELITIS, UNSPECIFIED (4) HTN (hypertension) Code(s): I10 - ESSENTIAL (PRIMARY) HYPERTENSION Qualifiers: Hypertension type: essential hypertension Qualified Code(s): I10 - Essential (primary) hypertension (5) Sepsis Code(s): A41.9 - SEPSIS, UNSPECIFIED ORGANISM Qualifiers: Sepsis type: sepsis due to unspecified organism Qualified Code(s): A41.9 - Sepsis, unspecified organism (6) Diabetes mellitus, new onset Code(s): E11.9 - TYPE 2 DIABETES MELLITUS WITHOUT COMPLICATIONS Assessment/Plan MRI BRAIN WITH LISA ATIVAN PO 1 HOUR BEFORE MRI AND ATIVAN 2MG IV 15MIN BEFORE MRI IV ABX DOXY/ACYCLOVIR CONTINUE STOP ROCEPHIN DVT PROPHYLAXIS SISTER BEDSIDE FOR SUPPORT NEURO AND ID CONSULT APPRECIATED
[2017-06-30 10:30] LABS: HEMOGLOBIN 15.2 GM/dL (11.7-16.9); MCHC 33.7 g/dl (32.0-35.9); MEAN CELL VOLUME 82.9 fl (80-96); MEAN PLT VOLUME 8.5 fl (7.5-11.1); PLATELET COUNT 190 K/MM3 (134-434); RBC 5.42 M/mm3 (4.00-5.60); RDW 13.3 % (11.9-15.9); WHITE BLOOD COUNT 8.4 K/mm3 (4.0-10.0)
[2017-06-30 10:50] LABS: ALBUMIN 3.6 g/dl (3.4-5.0); ANION GAP 11 (8-16); BLOOD UREA NITROGEN 12 mg/dL (7-18); CALCIUM 9.1 mg/dL (8.5-10.1); CHLORIDE 103 mmol/L (98-107); CO2 24 mmol/L (21-32); GLUCOSE,RANDOM 152 mg/dL (74-106); POTASSIUM 4.2 mmol/L (3.5-5.1); SODIUM 138 mmol/L (136-145)
[2017-06-30 10:55] LABS: ALK PHOS 103 U/L (45-117); BILIRUBIN,TOTAL 1.5 mg/dL (0.2-1.0); SGOT/AST 134 U/L (15-37); SGPT/ALT 104 U/L (12-78); TOT PROT 6.9 g/dl (6.4-8.2)
[2017-06-30] MEDS: IBUPROFEN 800 MG/8 ML IJ IVPB PRN ×2 (11:54→21:41)
[2017-06-30 14:11] LABS: WEST NILE VIRUS AB SERUM,IGM Negative (Negative)
[2017-07-01 00:06] LABS: MYCOPLASMA PNEUMONIAE,IG G AB 920 U/mL (0-99); MYCOPLASMA PNEUMONIAE,IGM AB <770 U/mL (0-769)
[2017-07-01] MEDS: ACYCLOVIR INJECTION 1,000 MG in DEXTROSE 5%-WATER - 250 ML IVPB SCH (02:05)
[2017-07-01 06:22] LABS: BASO % 1.2 % (0-2.0); EOS % 4.8 % (0-4.5); HEMATOCRIT 44.9 % (35.4-49); HEMOGLOBIN 15.6 GM/dL (11.7-16.9); LYMPH % 32.5 % (8-40); MCH 28.3 pg (25.7-33.7); MCHC 34.8 g/dl (32.0-35.9); MEAN CELL VOLUME 81.5 fl (80-96); MEAN PLT VOLUME 8.3 fl (7.5-11.1); MONO % 10.4 % (3.8-10.2); NEUT % 51.1 % (42.8-82.8); PLATELET COUNT 228 K/MM3 (134-434); RBC 5.51 M/mm3 (4.00-5.60); WHITE BLOOD COUNT 8.7 K/mm3 (4.0-10.0)
[2017-07-01] MEDS: INSULIN SLIDING SCALE (NOVOLOG) 1 VIAL SQ SCH ×4 (06:29→21:39)
[2017-07-01 06:39] LABS: ANION GAP 11 (8-16); BILIRUBIN,TOTAL 1.1 mg/dL (0.2-1.0); BLOOD UREA NITROGEN 12 mg/dL (7-18); CALCIUM 9.4 mg/dL (8.5-10.1); CHLORIDE 105 mmol/L (98-107); CO2 22 mmol/L (21-32); CREATININE 0.8 mg/dL (0.7-1.3); GLUCOSE,RANDOM 137 mg/dL (74-106); PHOSPHOROUS 3.8 mg/dL (2.5-4.9); POTASSIUM 4.2 mmol/L (3.5-5.1); SGOT/AST 28 U/L (15-37); SGPT/ALT 84 U/L (12-78); SODIUM 138 mmol/L (136-145); TOT PROT 7.8 g/dl (6.4-8.2)
[2017-07-01 06:40] LABS: ALK PHOS 112 U/L (45-117)
[2017-07-01] MEDS ORDERED: SODIUM CHLORIDE NASAL SPRAY 44 ML BOTTLE NS PRN (06:51)
--- NOTE | 2017-07-01 08:07 | PN ---
Progress Note (short form) - Note Progress Note: 52 year old man who was brought in to the ED because of agitation and confusion- -subacute over one day. Per family member at the bedside, he only has h/o DM , on no medication lately , no h/o psych disorder, no sick contact or recent traveling. HX of hunting in past couple months. F/U: awake and laert, though can be slow to respond, slight hesitation with speech LYME , HSV (-), EBV + (prior exposure as per ID), mycoplasma IGm (-), rest labs P including [place] encephalitis panel ; will confirm with lab re autoimmune JOSÉ repeat MRI BRAIN - no new changes, atrophy no nuchal rigidity, no LIN -afebrile Vital Signs Temperature 97.8 F 06/30/17 02:00 Pulse Rate 102 H 06/30/17 06:00 Respiratory Rate 18 06/30/17 06:00 Blood Pressure 131/93 06/30/17 06:00 O2 Sat by Pulse Oximetry (%) 96 06/29/17 20:14 . CBCD WBC 8.4 K/mm3 (4.0-10.0) 06/28/17 06:30 RBC 5.65 M/mm3 (4.00-5.60) H 06/28/17 06:30 Hgb 15.9 GM/dL (11.7-16.9) 06/28/17 06:30 Hct 45.9 % (35.4-49) 06/28/17 06:30 MCV 81.3 fl (80-96) 06/28/17 06:30 MCHC 34.6 g/dl (32.0-35.9) 06/28/17 06:30 RDW 12.7 % (11.9-15.9) 06/28/17 06:30 Plt Count 186 K/MM3 (134-434) 06/28/17 06:30 MPV 8.2 fl (7.5-11.1) 06/28/17 06:30 CMP Sodium 136 mmol/L (136-145) 06/28/17 06:30 Potassium 3.5 mmol/L (3.5-5.1) 06/28/17 06:30 Chloride 104 mmol/L (98-107) 06/28/17 06:30 Carbon Dioxide 24 mmol/L (21-32) 06/28/17 06:30 Anion Gap 8 (8-16) 06/28/17 06:30 BUN 9 mg/dL (7-18) 06/28/17 06:30 Creatinine 0.8 mg/dL (0.7-1.3) 06/28/17 06:30 Creat Clearance w eGFR > 60 (>60) 06/27/17 06:05 Calcium 8.9 mg/dL (8.5-10.1) 06/28/17 06:30 Total Bilirubin 1.8 mg/dL (0.2-1.0) H 06/27/17 06:05 AST 15 U/L (15-37) D 06/27/17 06:05 ALT 28 U/L (12-78) 06/27/17 06:05 Alkaline Phosphatase 92 U/L (45-117) 06/27/17 06:05 Total Protein 7.6 g/dl (6.4-8.2) 06/27/17 06:05 Albumin 3.9 g/dl (3.4-5.0) 06/27/17 06:05 - Current Medication List Current Medications: Active Medications Acetaminophen (Tylenol -) 650 mg PO Q4H PRN PRN Reason: FEVER OR PAIN Haloperidol (Haldol Injection (Fast Acting) -) 1 mg IVPUSH Q4H PRN PRN Reason: AGITATION Last Admin: 06/28/17 20:30 Dose: 1 mg Acyclovir 1,000 mg/ Dextrose 270 mls @ 270 mls/hr IVPB Q8H-IV MARK Last Admin: 06/28/17 17:14 Dose: 270 mls/hr Potassium Chloride/Sodium Chloride (Ns+20 Meq Kcl -) 20 meq in 1,000 mls @ 125 mls/hr IV Q8H MARK Last Admin: 06/28/17 20:29 Dose: 125 mls/hr CEFTRIAXONE IN IS-OSM DEXTROSE (Ceftriaxone 2 Gm-D5w Bag) 2 gm in 50 mls @ 100 mls/hr IVPB DAILY MARK Ibuprofen (Caldolor Injection -) 600 mg IVPB Q6H PRN PRN Reason: FEVER Last Admin: 06/27/17 03:08 Dose: 600 mg Insulin Aspart (Novolog Vial Sliding Scale -) 1 vial SQ ACHS MARK PRN Reason: Protocol Last Admin: 06/28/17 16:51 Dose: Not Given AP : 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
--- NOTE | 2017-07-01 08:10 | PN ---
Progress Note (short form) - Note Progress Note: ID Discussed with neurology Clearly he has made improvement though still intermittently agitated and confused M HIS recent brain MRI negative as are most his serology cultures. Fevers from admission resolved Selected Entries 07/01/17 02:00 Temperature 97.5 F L Pulse Rate 102 H Respiratory 22 Rate Blood Pressure 147/109 Laboratory Tests 06/27/17 06/27/17 06/29/17 06:05 14:00 10:50 Lyme Disease IgG/IgM < 0.91 [place] Virus IgG Ab Negative West [place] Virus IgM Ab Negative EBV Nuclear Antigen >600.0 H M.pneumoniae IgG Titer 920 H M.pneumoniae IgM Titer <770 Microbiology 06/25/17 22:25 Cerebral Spinal Fluid - Lumbar Puncture Gram Stain - Final 06/25/17 22:25 Cerebral Spinal Fluid - Lumbar Puncture CSF Culture - Final NO GROWTH AFTER 48 HOURS INCUBATION 06/25/17 20:54 Nasopharyngeal Swab Influenza Types A,B Antigen (BENSON) - Final 06/25/17 20:54 Nasopharyngeal Swab - Final 06/25/17 14:02 Urine - Urine Clean Catch Urine Culture - Final NO GROWTH OBTAINED 06/25/17 13:40 Blood - Peripheral Venous Blood Culture - Final NO GROWTH AFTER 5 DAYS INCUBATION 06/25/17 13:40 Blood - Peripheral Venous Blood Culture - Final NO GROWTH AFTER 5 DAYS INCUBATION Laboratory Tests 06/27/17 06/27/17 06:05 14:00 Lyme Disease IgG/IgM < 0.91 [place] Virus IgG Ab Negative [place] Virus IgM Ab Negative Assessment Clinical improvement Picture consistent with encephalitis probably viral HSV negative EBV IGM not back yes EBNA may be consistent with PAST infection EBV Vital CSF panel pending but regardless if positive no treatment with antibiotic going to be beneficical Mycoplasma Igm (-) IN an immunocompetent host ( neg HIV transplant) no treatment for EBV anyway Plan Stop all antibiotic Consider floor transfer Begin physical therapy Given suspected encephalitis will take weeks to improve neurologically Critical care time 35 minutes Efren LYLES Problem List - Problems (1) Altered mental state Code(s): R41.82 - ALTERED MENTAL STATUS, UNSPECIFIED Qualifiers: Altered mental status type: unspecified Qualified Code(s): R41.82 - Altered mental status, unspecified (2) Encephalitis Code(s): G04.90 - ENCEPHALITIS AND ENCEPHALOMYELITIS, UNSPECIFIED
[2017-07-01] MEDS: FLUTICASONE PROP 0.05% 16 GM NASAL SPRAY NS SCH (09:22)
[2017-07-01] MEDS: IBUPROFEN 800 MG/8 ML IJ IVPB PRN (13:44)
[2017-07-01] MEDS: LORazepam 2 MG/ML SDV VIAL IVPUSH PRN ×2 (15:26→23:22)
[2017-07-01 16:20] LABS: EPSTEIN BARR ANTIBODY IgM <36.0 U/mL (0.0-35.9)
--- NOTE | 2017-07-01 18:47 | PN ---
Physical Exam: SUBJECTIVE: Patient seen and examined in the ICU. Knows his name, where he is and date. In no acute distress. OBJECTIVE: Vital Signs Period Temp Pulse Resp BP Sys/Allison Pulse Ox Last 24 Hr 97.5 F-98.5 F 61-113 20-22 136-148/92-109 95-98 GENERAL: The patient is awake, oriented, in no acute distress. HEAD: Normal with no signs of trauma. EYES: PERRL, extraocular movements intact, sclera anicteric, conjunctiva clear. No ptosis. ENT: Ears normal, nares patent, oropharynx clear without exudates, moist mucous membranes. NECK: Trachea midline, full range of motion, supple. LUNGS: Breath sounds equal, clear to auscultation bilaterally, no wheezes, no crackles, no accessory muscle use. HEART: Regular rate and rhythm, S1, S2 without murmur, rub or gallop. ABDOMEN: Soft, nontender, nondistended, normoactive bowel sounds, no guarding, no rebound, no hepatosplenomegaly, no masses. EXTREMITIES: 2+ pulses, warm, well-perfused, no edema. NEUROLOGICAL: Normal speech, gait not observed. PSYCH: Normal mood, normal affect. SKIN: Warm, dry, normal turgor, no rashes or lesions noted Laboratory Results - last 24 hr 06/26/17 06/29/17 06/30/17 14:00 10:50 05:05 WBC RBC Hgb Hct MCV MCH MCHC RDW Plt Count MPV Neutrophils % Lymphocytes % Monocytes % Eosinophils % Basophils % Sodium Potassium Chloride Carbon Dioxide Anion Gap BUN Creatinine Creat Clearance w eGFR POC Glucometer Random Glucose Calcium Phosphorus Magnesium Total Bilirubin AST ALT Alkaline Phosphatase Total Protein Albumin CSF [place] IgG Ab Negative CSF [place] IgM Ab Negative Thyroid Peroxidase Ab 19 Anti-Cardiolipin IgG Ab <9 Anti-Cardiolipin IgA Ab <9 Anti-Cardiolipin IgM Ab <9 EBV IgG Ab 547.0 H EBV IgM Ab <36.0 M.pneumoniae IgG Titer 920 H M.pneumoniae IgM Titer <770 06/30/17 06/30/17 06/30/17 06:00 12:29 12:32 WBC RBC Hgb Hct MCV MCH MCHC RDW Plt Count MPV Neutrophils % Lymphocytes % Monocytes % Eosinophils % Basophils % Sodium Potassium Chloride Carbon Dioxide Anion Gap BUN Creatinine Creat Clearance w eGFR POC Glucometer [phone] 150.54996 Random Glucose Calcium Phosphorus Magnesium Total Bilirubin AST ALT Alkaline Phosphatase Total Protein Albumin CSF [place] IgG Ab CSF [place] IgM Ab Thyroid Peroxidase Ab Anti-Cardiolipin IgG Ab Anti-Cardiolipin IgA Ab Anti-Cardiolipin IgM Ab EBV IgG Ab EBV IgM Ab M.pneumoniae IgG Titer M.pneumoniae IgM Titer 06/30/17 07/01/17 07/01/17 16:07 05:10 05:10 WBC 8.7 RBC 5.51 Hgb 15.6 Hct 44.9 MCV 81.5 MCH 28.3 MCHC 34.8 RDW 13.0 Plt Count 228 MPV 8.3 Neutrophils % 51.1 Lymphocytes % 32.5 D Monocytes % 10.4 H Eosinophils % 4.8 H Basophils % 1.2 Sodium 138 Potassium 4.2 Chloride 105 Carbon Dioxide 22 Anion Gap 11 BUN 12 Creatinine 0.8 Creat Clearance w eGFR > 60 POC Glucometer [phone] Random Glucose 137 H Calcium 9.4 Phosphorus 3.8 Magnesium 2.0 Total Bilirubin 1.1 H D AST 28 D ALT 84 H Alkaline Phosphatase 112 Total Protein 7.8 Albumin 4.0 CSF [place] IgG Ab CSF [place] IgM Ab Thyroid Peroxidase Ab Anti-Cardiolipin IgG Ab Anti-Cardiolipin IgA Ab Anti-Cardiolipin IgM Ab EBV IgG Ab EBV IgM Ab M.pneumoniae IgG Titer M.pneumoniae IgM Titer 07/01/17 11:29 WBC RBC Hgb Hct MCV MCH MCHC RDW Plt Count MPV Neutrophils % Lymphocytes % Monocytes % Eosinophils % Basophils % Sodium Potassium Chloride Carbon Dioxide Anion Gap BUN Creatinine Creat Clearance w eGFR POC Glucometer [phone] Random Glucose Calcium Phosphorus Magnesium Total Bilirubin AST ALT Alkaline Phosphatase Total Protein Albumin CSF [place] IgG Ab CSF [place] IgM Ab Thyroid Peroxidase Ab Anti-Cardiolipin IgG Ab Anti-Cardiolipin IgA Ab Anti-Cardiolipin IgM Ab EBV IgG Ab EBV IgM Ab M.pneumoniae IgG Titer M.pneumoniae IgM Titer Active Medications Generic Name Dose Route Start Last Admin Trade Name Freq PRN Reason Stop Dose Admin Acetaminophen 650 mg 06/25/17 20:08 06/29/17 19:38 Tylenol - PO 650 mg Q4H PRN Administration FEVER OR PAIN Fluticasone Propionate 2 spray 07/01/17 10:00 07/01/17 09:22 Flonase - NS 2 inh DAILY MARK Administration Ibuprofen 600 mg 06/26/17 00:39 07/01/17 13:44 Caldolor Injection - IVPB 600 mg Q6H PRN Administration FEVER Insulin Aspart 1 vial 06/26/17 22:09 07/01/17 16:58 Novolog Vial Sliding Scale - SQ Not Given ACHS MARK Protocol Lorazepam 1 mg 06/30/17 10:04 Ativan - PO 06/30/17 10:05 ONCE ONE Lorazepam 2 mg 06/30/17 10:30 Ativan Injection - IVPUSH 06/30/17 10:31 ONCE ONE Lorazepam 1 mg 07/01/17 00:39 07/01/17 15:26 Ativan Injection - IVPUSH 1 mg Q6H PRN Administration ANXIETY Sodium Chloride 2 spray 07/01/17 06:51 07/01/17 09:21 [place] Nasal [place] - NS 2 inh TID PRN Administration NASAL CONGESTION ASSESSMENT/PLAN: Patient is a 52 year old male with a past medical history of diabtes. He was brought in by his family on 06/25/2017 for AMS. As per admission records, patient was notably confused while at work and was also noted to be tremulous and sweaty on admission. Imaging: Brain MRI 06/30/2017: No infarct or other intracranial abnormality, mild generalized cerebral atrophy. mild to modrate mucosal thickening within the right sphenoid sinus. Neurology: Altered Mental Status, etiology unclear Mental status improving, not yet at baseline No tremors on exam Toxicology negative Lab serology pending Vitals stable, afebrile MRI as above Viral cause? autoimmune cause, labs pending On Ativan Prn Antibiotics d/cd the ID Neuro following Urine and blood cultures negative Continue to monitor mental status Labs in a.m. Endocrine Diabetes On Novolog ss F.E.N. fluids: tolerating PO Electrolytes: monitor Nutrition: diabetic diet Prophy: DVT: SCDS GI: Protonix Disposition: ICU monitoring. full code. Visit type - Emergency Visit Emergency Visit: Yes ED Registration Date: 06/25/17 Care time: The patient presented to the Emergency Department on the above date and was hospitalized for further evaluation of their emergent condition. - New Patient This patient is new to me today: Yes Date on this admission: 07/01/17 - Critical Care Critical Care patient: Yes Total Critical Care Time (in minutes): 60 Critical Care Statement: The care of this patient involved high complexity decision making to prevent further life threatening deterioration of the patient 's condition and/or to evaluate & treat vital organ system(s) failure or risk of failure. - Discharge Referral Referred to [facility] No
[2017-07-02 00:06] LABS: BABESIA MICROTI ANTIBODY IGG <1:10 (Neg:<1:10); BABESIA MICROTI ANTIBODY IGM <1:10 (Neg:<1:10)
[2017-07-02] MEDS: INSULIN SLIDING SCALE (NOVOLOG) 1 VIAL SQ SCH ×4 (06:39→21:37)
[2017-07-02 07:01] LABS: BASO % 1.1 % (0-2.0); HEMATOCRIT 44.2 % (35.4-49); HEMOGLOBIN 15.4 GM/dL (11.7-16.9); LYMPH % 34.5 % (8-40); MCH 28.7 pg (25.7-33.7); MCHC 34.8 g/dl (32.0-35.9); MEAN CELL VOLUME 82.5 fl (80-96); MEAN PLT VOLUME 8.4 fl (7.5-11.1); MONO % 9.7 % (3.8-10.2); NEUT % 50.7 % (42.8-82.8); PLATELET COUNT 215 K/MM3 (134-434); RBC 5.36 M/mm3 (4.00-5.60); WHITE BLOOD COUNT 10.2 K/mm3 (4.0-10.0)
[2017-07-02 07:02] LABS: ALBUMIN 3.9 g/dl (3.4-5.0); ANION GAP 9 (8-16); BILIRUBIN,TOTAL 1.2 mg/dL (0.2-1.0); BLOOD UREA NITROGEN 9 mg/dL (7-18); CALCIUM 9.1 mg/dL (8.5-10.1); CHLORIDE 102 mmol/L (98-107); CO2 27 mmol/L (21-32); CREATININE 0.7 mg/dL (0.7-1.3); GLUCOSE,RANDOM 112 mg/dL (74-106); MAGNESIUM 2.1 mg/dL (1.8-2.4); POTASSIUM 4.4 mmol/L (3.5-5.1); SGOT/AST 15 U/L (15-37); SGPT/ALT 61 U/L (12-78); SODIUM 138 mmol/L (136-145)
[2017-07-02 07:03] LABS: ALK PHOS 103 U/L (45-117); TOT PROT 7.6 g/dl (6.4-8.2)
--- NOTE | 2017-07-02 07:47 | PN ---
Progress Note, Physician Chief Complaint: ID Remains afebrile Seems oriented but according to nursing staff still confused overnight gets out of bed and "wanders" about ICU - Current Medication List Current Medications: Active Medications Acetaminophen (Tylenol -) 650 mg PO Q4H PRN PRN Reason: FEVER OR PAIN Last Admin: 06/29/17 19:38 Dose: 650 mg Fluticasone Propionate (Flonase -) 2 spray NS DAILY MARK Last Admin: 07/01/17 09:22 Dose: 2 inh Ibuprofen (Caldolor Injection -) 600 mg IVPB Q6H PRN PRN Reason: FEVER Last Admin: 07/01/17 13:44 Dose: 600 mg Insulin Aspart (Novolog Vial Sliding Scale -) 1 vial SQ ACHS MARK PRN Reason: Protocol Last Admin: 07/02/17 06:39 Dose: Not Given Lorazepam (Ativan -) 1 mg PO ONCE ONE Stop: 06/30/17 10:05 Lorazepam (Ativan Injection -) 2 mg IVPUSH ONCE ONE Stop: 06/30/17 10:31 Lorazepam (Ativan Injection -) 1 mg IVPUSH Q6H PRN PRN Reason: ANXIETY Last Admin: 07/01/17 23:22 Dose: 1 mg Sodium Chloride ([place] Nasal [place] -) 2 spray NS TID PRN PRN Reason: NASAL CONGESTION Last Admin: 07/01/17 09:21 Dose: 2 inh - Objective Vital Signs: Vital Signs Temperature 98 F 07/02/17 05:38 Pulse Rate 84 07/02/17 05:38 Respiratory Rate 18 07/02/17 05:38 Blood Pressure 116/83 07/02/17 05:38 O2 Sat by Pulse Oximetry (%) 96 07/01/17 19:06 Constitutional: Yes: Well Nourished, No Distress Neck: Yes: WNL, Supple Cardiovascular: Yes: S1, S2 Respiratory: Yes: WNL, Regular, CTA Bilaterally Gastrointestinal: Yes: Soft Edema: No Labs: CBC, BMP 07/02/17 06:10 07/02/17 06:10 INR, PTT INR 1.01 (0.82-1.09) 06/25/17 14:02 Problem List - Problems (1) Altered mental state Code(s): R41.82 - ALTERED MENTAL STATUS, UNSPECIFIED Qualifiers: Altered mental status type: unspecified Qualified Code(s): R41.82 - Altered mental status, unspecified (2) Encephalitis Code(s): G04.90 - ENCEPHALITIS AND ENCEPHALOMYELITIS, UNSPECIFIED Assessment/Plan Assessment Working diagnosis encephalitis improving albeit slowly from neurological standpoint. Acute onset of fever makes infectious etiology most likely consideration here but all work up negative including EBV IgM ( consistent with past infection) Plan Advance PT floor transfer [place] panel viral PCR/ culture pending Efren LYLES
[2017-07-02] MEDS: LORazepam 2 MG/ML SDV VIAL IVPUSH PRN ×3 (10:31→21:37)
--- NOTE | 2017-07-02 11:50 | PN ---
Progress Note (short form) - Note Progress Note: Mental status continues to improve, but still with periods of confusion. No acute events overnight. Intake & Output 06/29/17 06/30/17 07/01/17 07/02/17 23:59 23:59 23:59 23:59 Intake Total 2475 5015 Output Total 200 2 Balance 2275 5015 -2 Weight 214 lb 8 oz 210 lb 210 lb 12.8 oz Last Vital Signs Temp Pulse Resp BP Pulse Ox 98.3 F 106 H 18 108/80 96 07/02/17 09:50 07/02/17 09:50 07/02/17 09:50 07/02/17 09:50 07/02/17 09:50 Active Medications Acetaminophen (Tylenol -) 650 mg PO Q4H PRN PRN Reason: FEVER OR PAIN Last Admin: 06/29/17 19:38 Dose: 650 mg Fluticasone Propionate (Flonase -) 2 spray NS DAILY MARK Last Admin: 07/01/17 09:22 Dose: 2 inh Ibuprofen (Caldolor Injection -) 600 mg IVPB Q6H PRN PRN Reason: FEVER Last Admin: 07/01/17 13:44 Dose: 600 mg Insulin Aspart (Novolog Vial Sliding Scale -) 1 vial SQ ACHS MARK PRN Reason: Protocol Last Admin: 07/02/17 11:20 Dose: Not Given Lorazepam (Ativan -) 1 mg PO ONCE ONE Stop: 06/30/17 10:05 Lorazepam (Ativan Injection -) 2 mg IVPUSH ONCE ONE Stop: 06/30/17 10:31 Lorazepam (Ativan Injection -) 1 mg IVPUSH Q6H PRN PRN Reason: ANXIETY Last Admin: 07/02/17 10:31 Dose: 1 mg Sodium Chloride ([place] Acushnet Nasal Acushnet -) 2 spray NS TID PRN PRN Reason: NASAL CONGESTION Last Admin: 07/01/17 09:21 Dose: 2 inh Constitutional: Yes: More oriented, mildly confused Eyes: Yes: Conjunctiva Clear, EOM Intact HENT: Yes: Atraumatic, Normocephalic Neck: Yes: Supple, Trachea Midline Cardiovascular: Yes: Tachycardia Respiratory: Yes: CTA Bilaterally ...Inspection: Yes: WNL ...Clubbing: No Gastrointestinal: Yes: Normal Bowel Sounds, Soft Musculoskeletal: Yes: WNL Extremities: Yes: WNL Edema: No Peripheral Pulses WNL: Yes Integumentary: Yes: WNL Neurological: Yes: Confusion. No: Asterixis, Facial Droop, Seizure, Tremors Labs: Laboratory Results - last 24 hr 06/26/17 06/26/17 06/28/17 14:00 14:00 10:50 WBC RBC Hgb Hct MCV MCH MCHC RDW Plt Count MPV Neutrophils % Lymphocytes % Monocytes % Eosinophils % Basophils % Sodium Potassium Chloride Carbon Dioxide Anion Gap BUN Creatinine Creat Clearance w eGFR POC Glucometer Random Glucose Calcium Magnesium Total Bilirubin AST ALT Alkaline Phosphatase Total Protein Albumin CSF Lyme IgG Ab 18 kDa Absent CSF Lyme IgG Ab 23 kDa Absent CSF Lyme IgG Ab 28 kDa Absent CSF Lyme IgG Ab 30 kDa Absent CSF Lyme IgG Ab 39 kDa Absent CSF Lyme IgG Ab 41 kDa Absent CSF Lyme IgG Ab 45 kDa Absent CSF Lyme IgG Ab 58 kDa Absent CSF Lyme IgG Ab 66 kDa Absent CSF [place]yme IgG Ab 93 kDa Absent CSF [place]yme IgM Ab 23 kDa Absent CSF Lyme IgM Ab 39 kDa Absent CSF [place]yme IgM Ab 41 kDa Absent CSF [place] IgG Ab Negative CSF [place] IgM Ab Negative Anti-Cardiolipin IgG Ab Anti-Cardiolipin IgA Ab Anti-Cardiolipin IgM Ab Babesia microti IgG Ab <1:10 Babesia microti IgM Ab <1:10 Lyme IgG Ab Interpret Negative Lyme IgM Ab Index Negative EBV IgG Ab EBV IgM Ab Hepatitis A IgM Ab Hep Bs Antigen Hep B Core IgM Ab Hepatitis C Antibody 06/30/17 06/30/17 06/30/17 05:05 12:29 12:32 WBC RBC Hgb Hct MCV MCH MCHC RDW Plt Count MPV Neutrophils % Lymphocytes % Monocytes % Eosinophils % Basophils % Sodium Potassium Chloride Carbon Dioxide Anion Gap BUN Creatinine Creat Clearance w eGFR POC Glucometer [phone] Random Glucose Calcium Magnesium Total Bilirubin AST ALT Alkaline Phosphatase Total Protein Albumin CSF Lyme IgG Ab 18 kDa CSF Lyme IgG Ab 23 kDa CSF Lyme IgG Ab 28 kDa CSF Lyme IgG Ab 30 kDa CSF [place]yme IgG Ab 39 kDa CSF [place]yme IgG Ab 41 kDa CSF Lyme IgG Ab 45 kDa CSF Lyme IgG Ab 58 kDa CSF Lyme IgG Ab 66 kDa CSF Lyme IgG Ab 93 kDa CSF Lyme IgM Ab 23 kDa CSF Lyme IgM Ab 39 kDa CSF Lyme IgM Ab 41 kDa CSF [place] IgG Ab CSF [place] IgM Ab Anti-Cardiolipin IgG Ab <9 Anti-Cardiolipin IgA Ab <9 Anti-Cardiolipin IgM Ab <9 Babesia microti IgG Ab Babesia microti IgM Ab Lyme IgG Ab Interpret Lyme IgM Ab Index EBV IgG Ab 547.0 H EBV IgM Ab <36.0 Hepatitis A IgM Ab Hep Bs Antigen Hep B Core IgM Ab Hepatitis C Antibody 07/01/17 07/01/17 07/01/17 05:10 11:29 16:42 WBC RBC Hgb Hct MCV MCH MCHC RDW Plt Count MPV Neutrophils % Lymphocytes % Monocytes % Eosinophils % Basophils % Sodium Potassium Chloride Carbon Dioxide Anion Gap BUN Creatinine Creat Clearance w eGFR POC Glucometer 123.28241 139.78196 Random Glucose Calcium Magnesium Total Bilirubin AST ALT Alkaline Phosphatase Total Protein Albumin CSF Lyme IgG Ab 18 kDa CSF Lyme IgG Ab 23 kDa CSF Lyme IgG Ab 28 kDa CSF [place]yme IgG Ab 30 kDa CSF Lyme IgG Ab 39 kDa CSF Lyme IgG Ab 41 kDa CSF Lyme IgG Ab 45 kDa CSF Lyme IgG Ab 58 kDa CSF Lyme IgG Ab 66 kDa CSF Lyme IgG Ab 93 kDa CSF Lyme IgM Ab 23 kDa CSF Lyme IgM Ab 39 kDa CSF Lyme IgM Ab 41 kDa CSF [place] IgG Ab CSF [place] IgM Ab Anti-Cardiolipin IgG Ab Anti-Cardiolipin IgA Ab Anti-Cardiolipin IgM Ab Babesia microti IgG Ab Babesia microti IgM Ab Lyme IgG Ab Interpret Lyme IgM Ab Index EBV IgG Ab EBV IgM Ab Hepatitis A IgM Ab Negative Hep Bs Antigen Negative Hep B Core IgM Ab Negative Hepatitis C Antibody <0.1 07/01/17 07/02/17 07/02/17 21:38 05:33 06:10 WBC 10.2 H RBC 5.36 Hgb 15.4 Hct 44.2 MCV 82.5 MCH 28.7 MCHC 34.8 RDW 13.0 Plt Count 215 MPV 8.4 Neutrophils % 50.7 Lymphocytes % 34.5 Monocytes % 9.7 Eosinophils % 4.0 Basophils % 1.1 Sodium Potassium Chloride Carbon Dioxide Anion Gap BUN Creatinine Creat Clearance w eGFR POC Glucometer 178.44895 142.05360 Random Glucose Calcium Magnesium Total Bilirubin AST ALT Alkaline Phosphatase Total Protein Albumin CSF Lyme IgG Ab 18 kDa CSF Lyme IgG Ab 23 kDa CSF Lyme IgG Ab 28 kDa CSF Lyme IgG Ab 30 kDa CSF Lyme IgG Ab 39 kDa CSF Lyme IgG Ab 41 kDa CSF Lyme IgG Ab 45 kDa CSF Lyme IgG Ab 58 kDa CSF Lyme IgG Ab 66 kDa CSF Lyme IgG Ab 93 kDa CSF Lyme IgM Ab 23 kDa CSF Lyme IgM Ab 39 kDa CSF Lyme IgM Ab 41 kDa CSF [place] IgG Ab CSF [place] IgM Ab Anti-Cardiolipin IgG Ab Anti-Cardiolipin IgA Ab Anti-Cardiolipin IgM Ab Babesia microti IgG Ab Babesia microti IgM Ab Lyme IgG Ab Interpret Lyme IgM Ab Index EBV IgG Ab EBV IgM Ab Hepatitis A IgM Ab Hep Bs Antigen Hep B Core IgM Ab Hepatitis C Antibody 07/02/17 06:10 WBC RBC Hgb Hct MCV MCH MCHC RDW Plt Count MPV Neutrophils % Lymphocytes % Monocytes % Eosinophils % Basophils % Sodium 138 Potassium 4.4 Chloride 102 Carbon Dioxide 27 D Anion Gap 9 BUN 9 D Creatinine 0.7 Creat Clearance w eGFR > 60 POC Glucometer Random Glucose 112 H Calcium 9.1 Magnesium 2.1 Total Bilirubin 1.2 H AST 15 D ALT 61 D Alkaline Phosphatase 103 Total Protein 7.6 Albumin 3.9 CSF Lyme IgG Ab 18 kDa CSF Lyme IgG Ab 23 kDa CSF Lyme IgG Ab 28 kDa CSF Lyme IgG Ab 30 kDa CSF Lyme IgG Ab 39 kDa CSF Lyme IgG Ab 41 kDa CSF Lyme IgG Ab 45 kDa CSF Lyme IgG Ab 58 kDa CSF Lyme IgG Ab 66 kDa CSF Lyme IgG Ab 93 kDa CSF Lyme IgM Ab 23 kDa CSF Lyme IgM Ab 39 kDa CSF Lyme IgM Ab 41 kDa CSF [place] IgG Ab CSF [place] IgM Ab Anti-Cardiolipin IgG Ab Anti-Cardiolipin IgA Ab Anti-Cardiolipin IgM Ab Babesia microti IgG Ab Babesia microti IgM Ab Lyme IgG Ab Interpret Lyme IgM Ab Index EBV IgG Ab EBV IgM Ab Hepatitis A IgM Ab Hep Bs Antigen Hep B Core IgM Ab Hepatitis C Antibody Problem List - Problems (1) Encephalitis Code(s): G04.90 - ENCEPHALITIS AND ENCEPHALOMYELITIS, UNSPECIFIED (2) Altered mental state Code(s): R41.82 - ALTERED MENTAL STATUS, UNSPECIFIED Qualifiers: Altered mental status type: unspecified Qualified Code(s): R41.82 - Altered mental status, unspecified Assessment/Plan Fall precautions PO as tolerated Off ABX / Anti-viral per ID Aspiration precautions Dr Hoffman Problem List - Problems (1) Encephalitis Code(s): G04.90 - ENCEPHALITIS AND ENCEPHALOMYELITIS, UNSPECIFIED (2) Altered mental state Code(s): R41.82 - ALTERED MENTAL STATUS, UNSPECIFIED Qualifiers: Altered mental status type: unspecified Qualified Code(s): R41.82 - Altered mental status, unspecified
[2017-07-02] MEDS: FLUTICASONE PROP 0.05% 16 GM NASAL SPRAY NS SCH (13:44)
[2017-07-02] MEDS ORDERED: IBUPROFEN 800 MG/8 ML IJ IVPB PRN (18:30)
[2017-07-02] MEDS ORDERED: ACETAMINOPHEN 325 MG TABLET (FP) PO PRN (18:30)
--- NOTE | 2017-07-02 18:37 | PN ---
Progress Note, Physician Chief Complaint: AWAKE MORE ALERT STILL HAS SOME EPISODES OF CONFUSION AND WANDERING UNABLE TO WRITE HIS NAME [employer] SKILLS DECREASED - Current Medication List Current Medications: Active Medications Acetaminophen (Tylenol -) 650 mg PO Q4H PRN PRN Reason: FEVER OR PAIN Fluticasone Propionate (Flonase -) 2 spray NS DAILY MARK Ibuprofen (Caldolor Injection -) 600 mg IVPB Q6H PRN PRN Reason: FEVER Insulin Aspart (Novolog Vial Sliding Scale -) 1 vial SQ ACHS MARK PRN Reason: Protocol Lorazepam (Ativan Injection -) 1 mg IVPUSH Q6H PRN PRN Reason: ANXIETY - Objective Vital Signs: Vital Signs Temperature 98.3 F 07/02/17 09:50 Pulse Rate 106 H 07/02/17 09:50 Respiratory Rate 18 07/02/17 09:50 Blood Pressure 108/80 07/02/17 09:50 O2 Sat by Pulse Oximetry (%) 96 07/02/17 09:50 Constitutional: Yes: Mild Distress Eyes: Yes: WNL HENT: Yes: WNL Neck: Yes: WNL Cardiovascular: Yes: WNL Respiratory: Yes: WNL Gastrointestinal: Yes: WNL Genitourinary: Yes: WNL Musculoskeletal: Yes: Muscle Weakness Extremities: Yes: WNL Edema: No Peripheral Pulses WNL: Yes Integumentary: Yes: WNL Wound/Incision: Yes: Clean/Dry Neurological: Yes: Dysarthria, Weakness ...Motor Strength: LLE, RLE Psychiatric: Yes: Other Labs: CBC, BMP 07/02/17 06:10 07/02/17 06:10 INR, PTT INR 1.01 (0.82-1.09) 06/25/17 14:02 Problem List - Problems (1) Altered mental state Code(s): R41.82 - ALTERED MENTAL STATUS, UNSPECIFIED Qualifiers: Altered mental status type: unspecified Qualified Code(s): R41.82 - Altered mental status, unspecified (2) Diabetes mellitus Code(s): E11.9 - TYPE 2 DIABETES MELLITUS WITHOUT COMPLICATIONS Qualifiers: Diabetes mellitus type: type 2 Diabetes mellitus complication status: with unspecified complications (3) Encephalitis Code(s): G04.90 - ENCEPHALITIS AND ENCEPHALOMYELITIS, UNSPECIFIED (4) HTN (hypertension) Code(s): I10 - ESSENTIAL (PRIMARY) HYPERTENSION Qualifiers: Hypertension type: essential hypertension Qualified Code(s): I10 - Essential (primary) hypertension (5) Sepsis Code(s): A41.9 - SEPSIS, UNSPECIFIED ORGANISM Qualifiers: Sepsis type: sepsis due to unspecified organism Qualified Code(s): A41.9 - Sepsis, unspecified organism (6) Diabetes mellitus, new onset Code(s): E11.9 - TYPE 2 DIABETES MELLITUS WITHOUT COMPLICATIONS Assessment/Plan MRI BRAIN WITH [facility] WEDNESDAY IV ABX DOXY/ACYCLOVIR DISCONTINUE STOP ROCEPHIN DVT PROPHYLAXIS SISTER BEDSIDE FOR SUPPORT NEURO AND ID CONSULT APPRECIATED
[2017-07-03] MEDS: LORazepam 2 MG/ML SDV VIAL IVPUSH PRN ×2 (05:55→12:35)
[2017-07-03] MEDS: INSULIN SLIDING SCALE (NOVOLOG) 1 VIAL SQ SCH ×4 (06:05→21:20)
[2017-07-03 06:10] LABS: MUMPS AB IGG CSF < 5.0 AU/mL (<=10.9)
--- NOTE | 2017-07-03 10:29 | PN ---
Progress Note, Physician History of Present Illness: WANTS TO GO HOME PT UNSTEADY - Current Medication List Current Medications: Active Medications Acetaminophen (Tylenol -) 650 mg PO Q4H PRN PRN Reason: FEVER OR PAIN Fluticasone Propionate (Flonase -) 2 spray NS DAILY MARK Ibuprofen (Caldolor Injection -) 600 mg IVPB Q6H PRN PRN Reason: FEVER Insulin Aspart (Novolog Vial Sliding Scale -) 1 vial SQ ACHS MARK PRN Reason: Protocol Last Admin: 07/03/17 06:05 Dose: Not Given Lorazepam (Ativan Injection -) 1 mg IVPUSH Q6H PRN PRN Reason: ANXIETY Last Admin: 07/03/17 05:55 Dose: 1 mg - Objective Vital Signs: Vital Signs Temperature 98.6 F 07/03/17 06:01 Pulse Rate 88 07/03/17 06:01 Respiratory Rate 20 07/03/17 06:01 Blood Pressure 120/68 07/03/17 06:01 O2 Sat by Pulse Oximetry (%) 96 07/02/17 21:00 Cardiovascular: Yes: Regular Rate and Rhythm Respiratory: Yes: Regular, CTA Bilaterally Gastrointestinal: Yes: Normal Bowel Sounds, Soft Edema: No Neurological: Yes: Alert, Unsteady Gait, Weakness Labs: CBC, BMP 07/02/17 06:10 07/02/17 06:10 INR, PTT INR 1.01 (0.82-1.09) 06/25/17 14:02 Assessment/Plan - Problems (1) Sepsis Assessment/Plan: CULTURES NEGATIVE WBC decreased -Afebrile Code(s): A41.9 - SEPSIS, UNSPECIFIED ORGANISM Qualifiers: Sepsis type: sepsis due to unspecified organism Qualified Code(s): A41.9 - Sepsis, unspecified organism (2) Altered mental state Assessment/Plan: -Off Abx and Antiviral - MRI/CT head unremarkable -repeat CT head done, results unchanged -Neurology and ID on board -CSF culture negative -CSF protein mildly elevated -labs in AM -benzodiazepines for agitation -Psycholgy and psychiatry consult -Neuro check Code(s): R41.82 - ALTERED MENTAL STATUS, UNSPECIFIED Qualifiers: Altered mental status type: unspecified Qualified Code(s): R41.82 - Altered mental status, unspecified (3) Encephalitis -As Above---see id note Code(s): G04.90 - ENCEPHALITIS AND ENCEPHALOMYELITIS, UNSPECIFIED (4) HTN (hypertension) Assessment/Plan: monitor Vital Signs Period Temp Pulse Resp BP Sys/Allison Pulse Ox Last 24 Hr 98.3 F-98.9 F 87-112 18-20 106-133/66-81 96-96 Code(s): I10 - ESSENTIAL (PRIMARY) HYPERTENSION (5) Diabetes mellitus Assessment/Plan: -on Novolog sliding scale -BGM -endocrine consult Code(s): E11.9 - TYPE 2 DIABETES MELLITUS WITHOUT COMPLICATIONS
--- NOTE | 2017-07-03 10:48 | PN ---
Progress Note, Physician History of Present Illness: 52 year old man who was brought in to the ED because of agitation and confusion- -subacute over one day. Per family member at the bedside, he only has h/o DM , on no medication lately , no h/o psych disorder, no sick contact or recent traveling. HX of hunting in past couple months. F/U Awake and alert , MS is improving. PE: A& O x2 , no dysarthria Moves all exts Sensory Int LT/PP No dysmetria DTR 2+ all Gait stable LYME , HSV (-), EBV + (prior exposure as per ID), mycoplasma IGm (-), rest labs P including [place] encephalitis panel ; will confirm with lab re autoimmune JOSÉ repeat MRI BRAIN - no new changes, atrophy no nuchal rigidity, no LIN -afebrile A/P: ? Viral encephalitis , so far -ve w/u except mild elevation of CSF Pr. MS is improving f/u pending labs Health maintenance per primary team. Fidelinax Abdelrahman Darling MD - Current Medication List Current Medications: Active Medications Acetaminophen (Tylenol -) 650 mg PO Q4H PRN PRN Reason: FEVER OR PAIN Fluticasone Propionate (Flonase -) 2 spray NS DAILY MARK Ibuprofen (Caldolor Injection -) 600 mg IVPB Q6H PRN PRN Reason: FEVER Insulin Aspart (Novolog Vial Sliding Scale -) 1 vial SQ ACHS MARK PRN Reason: Protocol Last Admin: 07/03/17 06:05 Dose: Not Given Lorazepam (Ativan Injection -) 1 mg IVPUSH Q6H PRN PRN Reason: ANXIETY Last Admin: 07/03/17 05:55 Dose: 1 mg - Objective Vital Signs: Vital Signs Temperature 98.6 F 07/03/17 06:01 Pulse Rate 88 07/03/17 06:01 Respiratory Rate 20 07/03/17 06:01 Blood Pressure 120/68 07/03/17 06:01 O2 Sat by Pulse Oximetry (%) 96 07/02/17 21:00 Labs: CBC, BMP 07/02/17 06:10 07/02/17 06:10 INR, PTT INR 1.01 (0.82-1.09) 06/25/17 14:02 Problem List - Problems (1) Altered mental state Code(s): R41.82 - ALTERED MENTAL STATUS, UNSPECIFIED Qualifiers: Altered mental status type: unspecified Qualified Code(s): R41.82 - Altered mental status, unspecified (2) Encephalitis Code(s): G04.90 - ENCEPHALITIS AND ENCEPHALOMYELITIS, UNSPECIFIED (3) Diabetes mellitus, new onset Code(s): E11.9 - TYPE 2 DIABETES MELLITUS WITHOUT COMPLICATIONS
[2017-07-03] MEDS: FLUTICASONE PROP 0.05% 16 GM NASAL SPRAY NS SCH (12:12)
--- NOTE | 2017-07-03 16:20 | CON.PSL ---
Psychology Consult Consult Specialty:: Clinical Psychology and Neuropsychology Referred by:: Dr. Cooley History Provided By: Patient, Family Member Limitations to Obtaining History: No Limitations Current Medications: Active Medications Acetaminophen (Tylenol -) 650 mg PO Q4H PRN PRN Reason: FEVER OR PAIN Fluticasone Propionate (Flonase -) 2 spray NS DAILY [facility] Last Admin: 07/03/17 12:12 Dose: Not Given Ibuprofen (Caldolor Injection -) 600 mg IVPB Q6H PRN PRN Reason: FEVER Insulin Aspart (Novolog Vial Sliding Scale -) 1 vial SQ ACHS MARK PRN Reason: Protocol Last Admin: 07/03/17 11:34 Dose: Not Given Lorazepam (Ativan Injection -) 1 mg IVPUSH Q6H PRN PRN Reason: ANXIETY Last Admin: 07/03/17 12:35 Dose: 1 mg Allergies: Allergies Allergy/AdvReac Type Severity Reaction Status Date / Time No Known Allergies Allergy Verified 06/25/17 13:25 Does patient have pain?: No (No pain was evident.) Hx Alcohol Use: No (He stopped drinking beer since the pending divorce. ) Hx Substance Use: No (Denied any drug use and denied smoking.) Substance Use Type: None - Family History Family History: Unremarkable (It is significant that the patient is in the process of getting from his .) - Family Member Sister Hx Family Psychiatric Problems: No Hx Family Depression: No Current Medical Exam-Psy Orientation: Time, Person, Place Immediate Term Memory: 08/28 Expressive: Coherent Receptive: Age Appropriate Comprehension of Spoken Words Hallucinations: Absent Thought Process: Other (Although he initially presented as having an intact thought process, he appeared unaware of the reason he was advised to go to a rehabilatation facility. In addition, he was not aware of his having experienced encephalographic symptoms.) Depression: None (He denies depression.) Hopelessness: No Loss of Interest: No Anxiety Level: Moderate (Although he denies experiencing anxiety, he appeared somewhat agitated when he did not receive a definitive answer as to being discharged by me. It was explained that he could only be discharged by his physician which was not taken well by him.) Danger to Self and Others: No Sleep: Well (He states that he gets seven hours sleep every night.), Poorly Appetite: Good (He admits to eating sweets at night. However, he also denied being a Type 2 Diabetic per the nurse's report and chart.) Serial Sevens Intact: No (He eventually was able to spell world backwards.) Repeats 3 words told earlier: 2/3 Support System: Spouse, Sibling(s) (His soon to be ex- and his sister were present during the clinical interview. 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 Santizo was seen due to concerns about his leaving the hospital against medical advice. The patient does not seem to recall nor understand the seriousness of the conditions and symptoms resulting in his admission. The fact that his memory still seems somewhat compromised per the above, and his difficulty recalling 3 words a few minutes after their presentation, and his initial ability to subtract 7 from 100 without hesitation followed by complete confusion and inability to perform this task again suggests that there still may be remnants of cognitive compromise. Therefore, at this time his capacity to make the most appropriate decisions for himself may be questionable due to his denial or inability to recognize that his gait was unsteady, his experience of tremors and LOC resulting in ICU admission were cause for concern. These are valid reasons to recommend rehabilitation before return home where he would be left to his own in terms of taking prescribed medication (in the hospital he pulled out the IV). In addition, he did not admit to having Diabetes although it was reported in his medical chart. In summary, the initial impression of this patient was that he had full mental capacity to make decisions for himself. However, after further review of his medical history with his significant other and his nurse, it seems that he is either in denial or forgetful of the concerns regarding his health. A psychiatric evaluation also is suggested to render a second opinion as well as make recommendations for psychotropics. Thank you for the courtesy of your referral.
[2017-07-03] MEDS: LORazepam 2 MG/ML SDV VIAL IM PRN (18:21)
[2017-07-04] MEDS: LORazepam 2 MG/ML SDV VIAL IM PRN (00:24)
[2017-07-04] MEDS: INSULIN SLIDING SCALE (NOVOLOG) 1 VIAL SQ SCH ×2 (06:45→11:38)
--- NOTE | 2017-07-04 09:20 | PN ---
Progress Note, Physician History of Present Illness: WANTS TO GO HOME PT UNSTEADY-gait d/w dr retana and he believes pt does not clearly understand his conditio and may not be safe at home aw all this i discussed with pt this amait psychiatry consult - Current Medication List Current Medications: Active Medications Acetaminophen (Tylenol -) 650 mg PO Q4H PRN PRN Reason: FEVER OR PAIN Fluticasone Propionate (Flonase -) 2 spray NS DAILY MARK Last Admin: 07/03/17 12:12 Dose: Not Given Ibuprofen (Caldolor Injection -) 600 mg IVPB Q6H PRN PRN Reason: FEVER Insulin Aspart (Novolog Vial Sliding Scale -) 1 vial SQ ACHS MARK PRN Reason: Protocol Last Admin: 07/04/17 06:45 Dose: Not Given Lorazepam (Ativan Injection -) 1 mg IM Q6H PRN PRN Reason: ANXIETY Last Admin: 07/04/17 00:24 Dose: 1 mg - Objective Vital Signs: Vital Signs Temperature 97 F L 07/04/17 06:00 Pulse Rate 102 H 07/04/17 06:00 Respiratory Rate 18 07/04/17 06:00 Blood Pressure 106/73 07/04/17 06:00 O2 Sat by Pulse Oximetry (%) 96 07/03/17 21:00 Cardiovascular: Yes: Regular Rate and Rhythm Respiratory: Yes: Regular, CTA Bilaterally Gastrointestinal: Yes: Normal Bowel Sounds, Soft. No: Tenderness Edema: No Neurological: Yes: Alert, Unsteady Gait, Weakness, Other (forgetfull of history and details) Labs: CBC, BMP 07/02/17 06:10 07/02/17 06:10 INR, PTT INR 1.01 (0.82-1.09) 06/25/17 14:02 Assessment/Plan - Problems (1) Sepsis Assessment/Plan: CULTURES NEGATIVE WBC decreased -Afebrile Code(s): A41.9 - SEPSIS, UNSPECIFIED ORGANISM Qualifiers: Sepsis type: sepsis due to unspecified organism Qualified Code(s): A41.9 - Sepsis, unspecified organism (2) Altered mental state Assessment/Plan: -Off Abx and Antiviral - MRI/CT head unremarkable -repeat CT head done, results unchanged -Neurology and ID on board -CSF culture negative -CSF protein mildly elevated -labs in AM -benzodiazepines for agitation -Psychology consult noted -psychiatry consult pendin -Neuro check Code(s): R41.82 - ALTERED MENTAL STATUS, UNSPECIFIED Qualifiers: Altered mental status type: unspecified Qualified Code(s): R41.82 - Altered mental status, unspecified (3) Encephalitis -As Above---see id note Code(s): G04.90 - ENCEPHALITIS AND ENCEPHALOMYELITIS, UNSPECIFIED (4) HTN (hypertension) Assessment/Plan: monitor Vital Signs Period Temp Pulse Resp BP Sys/Allison Pulse Ox Last 24 Hr 98.3 F-98.9 F 87-112 18-20 106-133/66-81 96-96 Code(s): I10 - ESSENTIAL (PRIMARY) HYPERTENSION (5) Diabetes mellitus Assessment/Plan: -on Novolog sliding scale -BGM -endocrine consult Code(s): E11.9 - TYPE 2 DIABETES MELLITUS WITHOUT COMPLICATIONS
[2017-07-04 10:15] LABS: BASO % 0.1 % (0-2.0); EOS % 3.5 % (0-4.5); HEMATOCRIT 45.5 % (35.4-49); HEMOGLOBIN 15.6 GM/dL (11.7-16.9); MCH 28.4 pg (25.7-33.7); MCHC 34.4 g/dl (32.0-35.9); MEAN CELL VOLUME 82.6 fl (80-96); MONO % 9.8 % (3.8-10.2); NEUT % 53.6 % (42.8-82.8); PLATELET COUNT 242 K/MM3 (134-434); RBC 5.51 M/mm3 (4.00-5.60); RDW 12.8 % (11.9-15.9); WHITE BLOOD COUNT 10.2 K/mm3 (4.0-10.0)
[2017-07-04 11:40] LABS: ANION GAP 6 (8-16); BILIRUBIN,TOTAL 1.3 mg/dL (0.2-1.0); BLOOD UREA NITROGEN 19 mg/dL (7-18); CALCIUM 9.1 mg/dL (8.5-10.1); CHLORIDE 104 mmol/L (98-107); CO2 26 mmol/L (21-32); CREATININE 0.9 mg/dL (0.7-1.3); GLUCOSE,RANDOM 144 mg/dL (74-106); POTASSIUM 4.3 mmol/L (3.5-5.1); SGOT/AST 13 U/L (15-37); SGPT/ALT 46 U/L (12-78); SODIUM 136 mmol/L (136-145); TOT PROT 7.8 g/dl (6.4-8.2)
[2017-07-04 11:41] LABS: ALK PHOS 100 U/L (45-117)
[2017-07-04] MEDS: FLUTICASONE PROP 0.05% 16 GM NASAL SPRAY NS SCH (13:00)
--- NOTE | 2017-07-04 14:26 | CON.PSY ---
Psychiatry Consult Chief Complaint: Patient apparantly refusing to go to rehab. Admitted with AMS from Work. Patient is medically stable as far as DR. Ballard. seen for Mental capacity. No psych hidstory. Symptoms: reports: Oppositionalism - Previous Psychiatric Treatment Outpatient: None Inpatient: None - Previous Substance Abuse Treatment Outpatient: None Inpatient: None - Current Medications Current Medications: Active Medications Acetaminophen (Tylenol -) 650 mg PO Q4H PRN PRN Reason: FEVER OR PAIN Fluticasone Propionate (Flonase -) 2 spray NS DAILY [facility] Last Admin: 07/03/17 12:12 Dose: Not Given Ibuprofen (Caldolor Injection -) 600 mg IVPB Q6H PRN PRN Reason: FEVER Insulin Aspart (Novolog Vial Sliding Scale -) 1 vial SQ ACHS MARK PRN Reason: Protocol Last Admin: 07/04/17 11:38 Dose: Not Given Lorazepam (Ativan Injection -) 1 mg IM Q6H PRN PRN Reason: ANXIETY Last Admin: 07/04/17 00:24 Dose: 1 mg - Allergies Allergies: Allergies Allergy/AdvReac Type Severity Reaction Status Date / Time No Known Allergies Allergy Verified 06/25/17 13:25 - Current Living Status Usual Living Arrangement: Other - Current Mental Status Evaluation Appearance: Well Groomed Attitude: Cooperative - Affect Affect: Full Range Appropriateness: Appropriate to Content - Mood Mood: Euthymic - Speech/Language Expressive: Coherent - Psychomotor Activity Psychomotor Activity: Slowed - Thought Process Thought Process: Intact - Thought Content Hallucinations: Absent Delusions: Absent - Self Perception Self Perception: No Impairment - Cognition Attention: Alert Orientation: Time Memory, Immediate Recall: Intact Memory, Short Term: 2/3 Memory, Remote with Promptin/3 - Concentration Serial Sevens Intact: Yes Simple Calculations Intact: Yes - Abstraction Proverb Interpretation: Intact Judgement: Minimally Impaired - Insight Insight: Intact - Impulse Control Impulse Control: Good Control - Suicidal Ideation Suicidal Ideation: No - Homicidal Ideation Homicidal Ideation: No Assessment/Plan 1) Patient has functional mental capacity to make decisions at this time.
[2017-07-04 14:42] VITALS: BP 113/62; PULSE 92; TEMP 97.1
== END 2017-07-04 16:39 | disposition home or self-care (01) | DRG 871 ==
LOC: JER 12:58 → SUPCPDRO 12:58 → JERBED 19:12 → J2W 23:24 → J5S 07-02 17:37
PROVIDERS: ADMIT Family Medicine; ATTEND Family Medicine
PROC: 009U3ZX Drainage of Spinal Canal, Percutaneous Approach, Diagnostic (ICD-10-PCS; principal; 2017-06-25)
DX: A41.9 Sepsis, unspecified organism (principal); G93.41 Metabolic encephalopathy; G04.90 Encephalitis and encephalomyelitis, unspecified; E87.1 Hypo-osmolality and hyponatremia; E11.9 Type 2 diabetes mellitus without complications; F10.10 Alcohol abuse, uncomplicated; F12.10 Cannabis abuse, uncomplicated; E66.9 Obesity, unspecified; F09 Unspecified mental disorder due to known physiological condition; R26.81 Unsteadiness on feet; Z68.32 Body mass index [BMI] 32.0-32.9, adult
CPT/HCPCS: 36415; 36600; 70450-TC; 70551-TC; 70552-TC; 71010-TC; 74177-TC; 80048; 80053; 80074; 80307; 81003; 81015; 82009; 82140; 82550; 82803; 82945; 82962; 83036; 83519; 83520; 83605; 83735; 84100; 84157; 84484; 85025; 85027; 85610; 85730; 86038; 86255; 86376; 86593; 86617; 86618; 86664; 86665; 86666; 86694; 86735; 86738; 86753; 86765; 86787; 86788; 86789; 86850; 86900; 86901; 87040; 87070; 87086; 87205; 87389; 87529; 87804; 87899; 93005; 93010; 95816; 97116-GP; 97162-GP; 99285-25